=== PATIENT | male | born 1965 | race Caucasian/White ===

== ENCOUNTER 2017-04-02 09:54 | Observation (INO) | payer BC, OTHER ==
[2017-04-02] MEDS ORDERED: ASPIRIN 81 MG TABLET, CHEWABLE PO ONE (10:20)
[2017-04-02] MEDS ORDERED: ONDANSETRON HCL INJ/PF 4 MG/2 ML SDV IV ONE (10:41)
[2017-04-02] MEDS ORDERED: NORMAL SALINE 1000 ML 1,000 ML IV PRN (10:41)
--- NOTE | 2017-04-02 10:45 | ER Document Report ---
ED General - General Chief Complaint: Chest Pain Stated Complaint: HEART RATE PROBLEM Time Seen by Provider: 04/02/17 10:24 Mode of Arrival: Ambulatory Information source: Patient TRAVEL OUTSIDE OF THE [place] IN LAST 30 DAYS: No - HPI Patient complains to provider of: Palpitations, headache Onset: Yesterday Onset/Duration: Gradual, Intermittent Quality of pain: Achy Severity: Moderate Pain Level: 3 Associated symptoms: Chest pain, Nausea Exacerbated by: Denies Relieved by: Denies Similar symptoms previously: No Recently seen / treated by doctor: No Notes: Patient is a 52-year-old male who presents to the emergency room this morning complaining of palpitations, chest pain, headache, states he started with a headache yesterday evening in the posterior portion of his head, it was associated with nausea, and went away and intermittently overnight, this morning when he went to work at [employer], he started to feel the headache again and developed palpitations, felt clammy and developed some left- sided chest pain as well, he feels as though his heart is racing, and he developed lightheadedness, patient denies any history of similar symptoms previously, he does not typically get headaches, his last doctor visit was 2 years ago for checkup, he is not currently on any medications, he does not smoke , he does drink 2-4 beers daily - Related Data Allergies/Adverse Reactions: No Known Allergies Allergy (Verified 04/02/17 10:16) Home Medications: Current Home Medications No Home Medications 04/02/17 [History] Past Medical History - General Information source: Patient - Social History Smoking Status: Never Smoker Frequency of alcohol use: Social Drug Abuse: None Family History: Reviewed & Not Pertinent - Past Medical History Cardiac Medical History: Reports: Hx Hypercholesterolemia Renal/ Medical History: Denies: Hx Peritoneal Dialysis Surgical Hx: Negative - Immunizations Hx Diphtheria, Pertussis, Tetanus Vaccination: No Review of Systems - Review of Systems Constitutional: No symptoms reported EENT: No symptoms reported Cardiovascular: See HPI Respiratory: No symptoms reported Gastrointestinal: See HPI Genitourinary: No symptoms reported Male Genitourinary: No symptoms reported Musculoskeletal: No symptoms reported Skin: No symptoms reported Hematologic/Lymphatic: No symptoms reported Neurological/Psychological: See HPI -: Yes All other systems reviewed and negative Physical Exam - Vital signs Vitals: Temp Pulse Resp BP Pulse Ox 97.9 F 66 35 H 131/69 H 98 04/02/17 09:59 04/02/17 09:59 04/02/17 09:59 04/02/17 09:59 04/02/17 09:59 Interpretation: Normal - General General appearance: Appears well, Alert - HEENT Head: Normocephalic, Atraumatic Eyes: Normal Pupils: PERRL - Respiratory Respiratory status: No respiratory distress Chest status: Nontender Breath sounds: Normal Chest palpation: Normal - Cardiovascular Rhythm: Regular Heart sounds: Normal auscultation Murmur: No - Abdominal Inspection: Normal Distension: No distension Bowel sounds: Normal Tenderness: Nontender Organomegaly: No organomegaly - Back Back: Normal, Nontender - Extremities General upper extremity: Normal inspection, Nontender, Normal color, Normal ROM , Normal temperature General lower extremity: Normal inspection, Nontender, Normal color, Normal ROM , Normal temperature, Normal weight bearing. No: Ilana's sign - Neurological Neuro grossly intact: Yes Cognition: Normal Orientation: AAOx4 Love Coma Scale Eye Opening: Spontaneous Love Coma Scale Verbal: Oriented Love Coma Scale Motor: Obeys Commands [place] Coma Scale Total: 15 Speech: Normal Motor strength normal: LUE, RUE, LLE, RLE Sensory: Normal - Psychological Associated symptoms: Normal affect, Normal mood - Skin Skin Temperature: Warm Skin Moisture: Dry Skin Color: Normal Course - Re-evaluation Re-evalutation: 04/02/17 12:13 Patient resting comfortably, he does continue to have a headache, however medications have been given just within the last few minutes, chest pain is resolved except for an occasional squeezing sensation in the chest, initial workup is negative, however given patient's age, his lack of primary care or previous cardiac workup I discussed recommendation to have patient admitted for 23 hour observation for further evaluation and treatment and patient is in agreement with this, patient was discussed with Dr. Raygoza, hospitalist who agrees to admit patient for observation as well - Vital Signs Vital signs: Temp Pulse Resp BP Pulse Ox 97.9 F 66 24 H 131/69 H 97 04/02/17 09:59 04/02/17 09:59 04/02/17 10:25 04/02/17 09:59 04/02/17 10:24 - Laboratory Result Diagrams: 04/02/17 10:25 04/02/17 10:25 Laboratory results interpreted by me: 04/02/17 10:25 Creatine Kinase 256 H - Diagnostic Test Radiology reviewed: Image reviewed, Reports reviewed - EKG Interpretation by Me EKG shows normal: Sinus rhythm Rate: Normal Rhythm: NSR Discharge - Discharge Clinical Impression: Chest pain Qualifiers: Chest pain type: unspecified Qualified Code(s): R07.9 - Chest pain, unspecified Headache Qualifiers: Headache type: unspecified Headache chronicity pattern: acute headache Intractability: not intractable Qualified Code(s): R51 - Headache Condition: Stable Disposition: ADMITTED OBSERVATION Admitting Provider: Hospitalist Unit Admitted: Telemetry
--- NOTE | 2017-04-02 10:46 | RADIOLOGY REPORT (SQ) ---
EXAM DESCRIPTION: CHEST SINGLE VIEW COMPLETED DATE/TIME: 04/02/2017 10:39 am REASON FOR STUDY: bed 19 cp COMPARISON: None. NUMBER OF VIEWS: One view. TECHNIQUE: Single frontal radiographic view of the chest acquired. LIMITATIONS: None. FINDINGS: LUNGS AND PLEURA: No opacities, masses or pneumothorax. No pleural effusion. MEDIASTINUM AND HILAR STRUCTURES: No masses. Contour normal. HEART AND VASCULAR STRUCTURES: Heart normal in size. Normal vasculature. BONES: No acute findings. HARDWARE: None in the chest. OTHER: No other significant finding. IMPRESSION: NO SIGNIFICANT RADIOGRAPHIC FINDING IN THE CHEST. TECHNICAL DOCUMENTATION: JOB ID: [id number] [employer]- All Rights Reserved
[2017-04-02 10:55] LABS: ABSOLUTE EOSINOPHILS # (AUTO) 0.2 10^3/uL (0.0-0.6); ABSOLUTE LYMPHOCYTES (AUTO) 2.8 10^3/uL (0.5-4.7); ABSOLUTE MONOCYTES (AUTO) 0.8 10^3/uL (0.1-1.4); ABSOLUTE NEUT (AUTO) 3.2 10^3/uL (1.7-8.2); BASOPHILS % (AUTO) 0.6 % (0-2); EOSINOPHILS % (AUTO) 3.1 % (0-6); HEMOGLOBIN 15.8 g/dL (13.5-17.0); HGB HCT DIFFERENCE 1.4; LYMPHOCYTES % (AUTO) 39.4 % (13-45); MEAN CORPUSCULAR HEMOGLOBIN 32.4 pg (27.0-33.4); MEAN CORPUSCULAR HGB CONC 34.4 g/dL (32.0-36.0); MEAN CORPUSCULAR VOLUME 94 fl (80-97); MONOCYTES % (AUTO) 11.7 % (3-13); RED BLOOD COUNT 4.89 10^6/uL (4.35-5.55); RED CELL DISTRIBUTION WIDTH 13.3 % (11.5-14.0); SEGMENTED NEUTROPHILS % (AUTO) 45.2 % (42-78); WHITE BLOOD COUNT 7.2 10^3/uL (4.0-10.5)
[2017-04-02 11:16] LABS: ALANINE AMINOTRANSFERASE 70 U/L (21-72); ALBUMIN 4.5 g/dL (3.5-5.0); ALKALINE PHOSPHATASE 90 U/L (38-126); ANION GAP 13 (5-19); ASPARTATE AMINO TRANSFERASE 46 U/L (17-59); BILIRUBIN,DIRECT 0.3 mg/dL (0.0-0.4); BILIRUBIN,TOTAL 0.6 mg/dL (0.2-1.3); BLOOD UREA NITROGEN 19 mg/dL (7-20); CALCIUM 9.9 mg/dL (8.4-10.2); CARBON DIOXIDE 24 mmol/L (22-30); CHLORIDE 105 mmol/L (98-107); CREATINE KINASE 256 U/L (55-170); GLUCOSE 97 mg/dL (75-110); POTASSIUM 4.2 mmol/L (3.6-5.0); SODIUM 141.8 mmol/L (137-145); TOTAL PROTEIN 7.3 g/dL (6.3-8.2)
--- NOTE | 2017-04-02 11:20 | RADIOLOGY REPORT (SQ) ---
EXAM DESCRIPTION: CT HEAD WITHOUT COMPLETED DATE/TIME: 04/02/2017 10:59 am REASON FOR STUDY: injury COMPARISON: None. TECHNIQUE: Axial images acquired through the brain without intravenous contrast. Images reviewed wi th bone, brain and subdural windows. Images stored on PACS. All CT scanners at this facility use dose modulation, iterative reconstruction, and/or weight based d osing when appropriate to reduce radiation dose to as low as reasonably achievable (ALARA). [facility]: Dose Right [facility]: CareDose [facility]: Dose Right [facility]: Teradose 4D [facility]: [employer] RADIATION DOSE: Up-to-date CT equipment and radiation dose reduction techniques were employed. CTDIv ol: 64.6 mGy. DLP: 1163 mGy-cm. mGy. LIMITATIONS: Clinical information not provided. FINDINGS: VENTRICLES: Normal size and contour. CEREBRUM: No masses. No hemorrhage. No midline shift. No evidence for acute infarction. Normal gra y/white matter differentiation. No areas of low density in the white matter. CEREBELLUM: No masses. No hemorrhage. No alteration of density. No evidence for acute infarction. EXTRAAXIAL SPACES: No fluid collections. No masses. ORBITS AND GLOBE: No intra- or extraconal masses. Normal contour of globe without masses. CALVARIUM: No fracture. PARANASAL SINUSES: No fluid or mucosal thickening. SOFT TISSUES: No mass or hematoma. OTHER: No other significant finding. IMPRESSION: NORMAL BRAIN CT WITHOUT CONTRAST. COMMENT: Quality ID # [id number]: Final reports with documentation of one or more dose reduction techniques (e.g., Automated exposure control, adjustment of the mA and/or kV according to patient size, use of iterative reconstruction technique) TECHNICAL DOCUMENTATION: JOB ID: [id number]- All Rights Reserved
[2017-04-02 11:23] LABS: CREATINE KINASE MB 2.38 ng/mL (<4.55)
[2017-04-02 11:24] LABS: TROPONIN I < 0.012 ng/mL
[2017-04-02] MEDS ORDERED: KETOROLAC TROMETHAMINE INJ/PF 30 MG/1 ML SDV IV ONE (11:42)
[2017-04-02] MEDS ORDERED: ACETAMINOPHEN 325 MG TABLET PO PRN (13:16)
[2017-04-02] MEDS ORDERED: MAGNESIUM HYDROXIDE SUSP 30 ML UDCUP PO PRN (13:16)
[2017-04-02] MEDS ORDERED: ONDANSETRON HCL INJ/PF 4 MG/2 ML SDV IV PRN (13:16)
[2017-04-02] MEDS ORDERED: BUTALB/ACETAMINOPHEN/CAFFEINE 1 TAB EACH PO PRN (13:31)
[2017-04-02] MEDS ORDERED: BUTALB/ACETAMINOPHEN/CAFFEINE 1 TAB EACH PO ONE (13:31)
--- NOTE | 2017-04-02 14:39 | PDOC H&P ---
History of Present Illness Admission Date/PCP: 04/02/17 12:16 No PCP Patient complains of: Headach and Chest Discomfort History of Present Illness: CLIFTON MONTENEGRO is a 52 year old male present with complaint of headache which radiates from base of neck to right side of head. Pt states that he became dizziness at work. Pt states that he then sat down and felt his heart racing. Pt states that his symptoms improved and then returned. Pt states that at that time he became dizzy again with Nausea. Pt states that he developed left side chest cramping sensation which lasted for few secs. Pt states that he did not have any shortness of breath, Nausea, Vomiting, or radiation of pain. Past Medical History Cardiac Medical History: Reports: Hyperlipidema Social History Information Source: Patient Smoking Status: Never Smoker Family History Family History: Reviewed & Not Pertinent Parental Family History Reviewed: Yes Children Family History Reviewed: Yes Sibling(s) Family History Reviewed.: Yes Medication/Allergy Home Medications: No Home Medications 04/02/17 Allergies/Adverse Reactions: No Known Allergies Allergy (Verified 04/02/17 10:16) Review of Systems Constitutional: ABSENT: chills, fever(s), headache(s), weight gain, weight loss Eyes: ABSENT: visual disturbances Ears: ABSENT: hearing changes Cardiovascular: PRESENT: chest pain Respiratory: ABSENT: cough, hemoptysis Gastrointestinal: ABSENT: abdominal pain, constipation, diarrhea, hematemesis, hematochezia, nausea, vomiting Genitourinary: ABSENT: dysuria, hematuria Musculoskeletal: ABSENT: joint swelling Integumentary: ABSENT: rash, wounds Neurological: ABSENT: abnormal gait, abnormal speech, confusion, dizziness, focal weakness, syncope Psychiatric: PRESENT: as per HPI Endocrine: PRESENT: as per HPI Hematologic/Lymphatic: PRESENT: as per HPI Physical Exam Vital Signs: Temp Pulse Resp BP Pulse Ox 97.9 F 66 15 126/77 H 95 04/02/17 09:59 04/02/17 09:59 04/02/17 13:01 04/02/17 13:01 04/02/17 13:01 General appearance: PRESENT: no acute distress, well-developed, well-nourished Head exam: PRESENT: atraumatic, normocephalic Eye exam: PRESENT: conjunctiva pink, EOMI. ABSENT: scleral icterus Ear exam: PRESENT: normal external ear exam Mouth exam: PRESENT: moist, tongue midline Neck exam: ABSENT: carotid bruit, JVD, lymphadenopathy, thyromegaly Respiratory exam: PRESENT: clear to auscultation suki. ABSENT: rales, rhonchi, wheezes Cardiovascular exam: PRESENT: RRR, other. ABSENT: diastolic murmur, rubs, systolic murmur GI/Abdominal exam: PRESENT: normal bowel sounds, soft. ABSENT: distended, guarding, mass, organolmegaly, rebound, tenderness Rectal exam: PRESENT: deferred Extremities exam: PRESENT: full ROM. ABSENT: calf tenderness, clubbing, pedal edema Musculoskeletal exam: PRESENT: tenderness - +tenderness to the left border of sternum. Neurological exam: PRESENT: alert, awake, oriented to person, oriented to place , oriented to time, oriented to situation, CN II-XII grossly intact. ABSENT: motor sensory deficit Psychiatric exam: PRESENT: appropriate affect, normal mood. ABSENT: homicidal ideation, suicidal ideation Skin exam: PRESENT: dry, warm. ABSENT: cyanosis, rash Results Impressions: Chest X-Ray 04/02/17 10:20 IMPRESSION: NO SIGNIFICANT RADIOGRAPHIC FINDING IN THE CHEST. Head CT 04/02/17 10:41 IMPRESSION: NORMAL BRAIN CT WITHOUT CONTRAST. Assessment & Plan - Diagnosis (1) Chest pain Qualifiers: Chest pain type: unspecified Qualified Code(s): R07.9 - Chest pain, unspecified Is this a current diagnosis for this admission?: Yes Plan: Pt with normal EKG with one troponin neg. Will continue to trend troponins and repeat EKG in a.m. Pt's chest pain is reproducible. (2) Musculoskeletal chest pain Is this a current diagnosis for this admission?: Yes Plan: Will write for Tylenol for pain. (3) Headache Qualifiers: Headache type: unspecified Headache chronicity pattern: acute headache Intractability: not intractable Qualified Code(s): R51 - Headache Is this a current diagnosis for this admission?: Yes Plan: Most likely Tension Headache: Will give Fioricet (4) Obese Is this a current diagnosis for this admission?: Yes Plan: Encourage dietary changes. (5) HLD (hyperlipidemia) Qualifiers: Hyperlipidemia type: unspecified Qualified Code(s): E78.5 - Hyperlipidemia , unspecified Is this a current diagnosis for this admission?: Yes Plan: Pt gives history of HLD. Will check Lipid profile. - Time Time Spent: 30 to 50 Minutes
[2017-04-02] MEDS: ACETAMINOPHEN 325 MG TABLET PO SCH ×2 (16:24→22:40)
[2017-04-02] MEDS ORDERED: LORAZEPAM 0.5 MG TABLET PO PRN (18:38)
[2017-04-02] MEDS ORDERED: LORAZEPAM 0.5 MG TABLET PO ONE (18:38)
--- NOTE | 2017-04-02 20:25 | EKG REPORT ---
SEVERITY:- NORMAL ECG - SINUS RHYTHM : Confirmed by: Rommel Chan MD 02-Apr-2017 20:25:03
[2017-04-03 05:58] LABS: HEMATOCRIT 42.2 % (37.9-51.0); HEMOGLOBIN 14.9 g/dL (13.5-17.0); HGB HCT DIFFERENCE 2.5; MEAN CORPUSCULAR HEMOGLOBIN 33.1 pg (27.0-33.4); MEAN CORPUSCULAR HGB CONC 35.4 g/dL (32.0-36.0); MEAN CORPUSCULAR VOLUME 94 fl (80-97); RED BLOOD COUNT 4.51 10^6/uL (4.35-5.55); RED CELL DISTRIBUTION WIDTH 13.2 % (11.5-14.0); WHITE BLOOD COUNT 6.6 10^3/uL (4.0-10.5)
[2017-04-03] MEDS ORDERED: LANSOPRAZOLE 30 MG TAB.RAP.DR PO SCH (06:00)
[2017-04-03 06:13] LABS: ANION GAP 7 (5-19); BLOOD UREA NITROGEN 16 mg/dL (7-20); CALCIUM 9.2 mg/dL (8.4-10.2); CARBON DIOXIDE 25 mmol/L (22-30); CHLORIDE 109 mmol/L (98-107); CHOLESTEROL 244.55 mg/dL (0-200); Direct HDL 44 mg/dL (>40); GLUCOSE 102 mg/dL (75-110); POTASSIUM 4.5 mmol/L (3.6-5.0); SODIUM 140.5 mmol/L (137-145); TRIGLYCERIDES 200 mg/dL (<150)
[2017-04-03 06:24] LABS: DIRECT LDL 157 mg/dL (<100)
[2017-04-03] MEDS: ACETAMINOPHEN 325 MG TABLET PO SCH (06:56)
[2017-04-03 07:56] VITALS: BP 125/73
--- NOTE | 2017-04-03 08:21 | EKG REPORT ---
SEVERITY:- NORMAL ECG - SINUS RHYTHM : Confirmed by: Rommel Chan MD 03-Apr-2017 08:19:50
--- NOTE | 2017-04-03 10:32 | PDOC DISCHARGE SUMMARY ---
General - Admit/Disc Date/PCP Admission Date/Primary Care Provider: 04/02/17 13:16 Discharge Date: 04/03/17 - Discharge Diagnosis (1) Chest pain Is this a current diagnosis for this admission?: Yes Summary: Patient's [address] elevation or depression. Patient's troponins 3 were negative through hospital stay. Recommended that patient follow-up with cardiology as outpatient for an outpatient stress test. Patient was told about his elevated cholesterol and reported that patient is not able to take statins due to myalgias. Recommended red yeast rice and co-Q10. (2) Musculoskeletal chest pain Is this a current diagnosis for this admission?: Yes Summary: Supportive care. Patient was noted to have significant cervical and trapezius muscle tenderness to palpation (3) Headache Is this a current diagnosis for this admission?: Yes Summary: Suspect tension headache: Patient was given Fioricet that helped ease headache. Patient was discharged home with 5 tablets of Fioricet (4) Obese Is this a current diagnosis for this admission?: Yes Summary: Recommended dietary changes and weight loss. (5) HLD (hyperlipidemia) Is this a current diagnosis for this admission?: Yes Summary: reports the patient has an intolerance to statins due to myalgias: Recommended that patient try red yeast rice and co-Q10 along with dietary changes/weight loss. - Additional Information Resuscitation Status: Full Code Discharge Diet: Cardiac Discharge Activity: Activity As Tolerated Home Medications: Butalb/Acetaminophen/Caffeine [Fioricet (50-325-40 mg) Tablet] 1 tab PO Q6HP PRN #5 each 04/03/17 History of Present Illness History of Present Illness: CLIFTON MONTENEGRO is a 52 year old male present with complaint of headache which radiates from base of neck to right side of head. Pt states that he became dizziness at work. Pt states that he then sat down and felt his heart racing. Pt states that his symptoms improved and then returned. Pt states that at that time he became dizzy again with Nausea. Pt states that he developed left side chest cramping sensation which lasted for few secs. Pt states that he did not have any shortness of breath, Nausea, Vomiting, or radiation of pain. Hospital Course Hospital Course: Patient is a 52-year-old gentleman who presented with complaint of dizziness and headache that occurred while at work. Patient then reported that dizziness and headache reoccurred and during that time he experienced chest pressure with rapid heart rate. Patient was admitted to the hospital where he had 2 EKGs that showed normal sinus rhythm no EKG changes as well as normal troponins. Patient was given Fioricet for headache and headache did resolve. Patient was found to have abnormal cholesterol screening test however reports the patient has a statin intolerance due to myalgias. Therefore patient was recommended to lose weight and make dietary changes. Recommendation was also made to use red yeast rice and co-Q10. Patient was instructed that he will need to follow-up with cardiology for outpatient stress test. Patient was also told that if chest pain recurs to return to the emergency department. Physical Exam Vital Signs: Temp Pulse Resp BP Pulse Ox 98.3 F 59 L 20 125/73 96 04/03/17 07:38 04/03/17 07:38 04/03/17 07:38 04/03/17 07:38 04/03/17 07:38 Intake & Output 04/02/17 04/03/17 04/04/17 06:59 06:59 06:59 Intake Total 1470 Balance 1470 Weight 101 kg General appearance: PRESENT: no acute distress, well-developed, well-nourished Head exam: PRESENT: atraumatic, normocephalic Eye exam: PRESENT: conjunctiva pink, EOMI, PERRLA. ABSENT: scleral icterus Ear exam: PRESENT: normal external ear exam Mouth exam: PRESENT: moist, tongue midline Neck exam: PRESENT: tenderness - Cervical tenderness to palpation and percussion multiple trigger points palpable along the cervical muscles as well as the trapezius bilaterally Respiratory exam: PRESENT: clear to auscultation suki. ABSENT: rales, rhonchi, wheezes Cardiovascular exam: PRESENT: bradycardia, RRR. ABSENT: diastolic murmur, rubs , systolic murmur Pulses: PRESENT: normal dorsalis pedis pul Vascular exam: PRESENT: normal capillary refill GI/Abdominal exam: PRESENT: normal bowel sounds, soft. ABSENT: distended, guarding, mass, organolmegaly, rebound, tenderness Rectal exam: PRESENT: deferred Extremities exam: PRESENT: full ROM. ABSENT: calf tenderness, clubbing, pedal edema Neurological exam: PRESENT: alert, awake, oriented to person, oriented to place , oriented to time, oriented to situation, CN II-XII grossly intact. ABSENT: motor sensory deficit Psychiatric exam: PRESENT: appropriate affect, normal mood. ABSENT: homicidal ideation, suicidal ideation Skin exam: PRESENT: dry, intact, warm. ABSENT: cyanosis, rash Results Laboratory Results: 04/03/17 05:47 04/03/17 05:47 04/03/17 04/03/17 05:47 05:47 WBC 6.6 RBC 4.51 Hgb 14.9 Hct 42.2 MCV 94 MCH 33.1 MCHC 35.4 RDW 13.2 Plt Count 200 Sodium 140.5 Potassium 4.5 Chloride 109 H Carbon Dioxide 25 Anion Gap 7 BUN 16 Creatinine 0.90 Est GFR ( Amer) > 60 Est GFR (Non-Af Amer) > 60 Glucose 102 Calcium 9.2 Triglycerides 200 H Cholesterol 244.55 H LDL Cholesterol Direct 157 H VLDL Cholesterol 40.0 H HDL Cholesterol 44 04/02/17 04/02/17 04/03/17 18:00 18:00 00:20 Creatine Kinase 205 H 192 H Troponin I < 0.012 04/03/17 04/03/17 04/03/17 00:20 05:47 05:47 Creatine Kinase 180 H Troponin I < 0.012 < 0.012 Impressions: Chest X-Ray 04/02/17 10:20 IMPRESSION: NO SIGNIFICANT RADIOGRAPHIC FINDING IN THE CHEST. Head CT 04/02/17 10:41 IMPRESSION: NORMAL BRAIN CT WITHOUT CONTRAST. Qualifiers PATEINT BEING DISCHARGED WITH ANY OF THE FOLLOWING DIAGNOSIS?: No
== END 2017-04-03 11:16 | disposition home or self-care (01) ==
LOC: ER 09:54 → EH 12:16 → UNDOADMOB 12:16 → EH 13:16 → 4S 14:48
DX: R07.89 Other chest pain (principal); R51 Headache; E66.9 Obesity, unspecified; E78.5 Hyperlipidemia, unspecified
CPT/HCPCS: 93005 ×2; 99285; 96361; 96374; 96375; 36415 ×2; 82553; 82550 ×2; 84443; 85025; 85027; 80048; 80053; 84484 ×2; 83036; 80061; 71010; 70450; 93010 ×2; G0378 ×3; J3490 ×3; J1885; J2405; J7030

== ENCOUNTER → 2017-08-01 | Outpatient (CLI) | payer BC ==
--- NOTE | 2017-08-01 16:54 | RADIOLOGY REPORT (SQ) ---
EXAM DESCRIPTION: CHEST PA/LATERAL COMPLETED DATE/TIME: 08/01/2017 4:25 pm REASON FOR STUDY: COUGH COMPARISON: March 2017 EXAM PARAMETERS: NUMBER OF VIEWS: two views TECHNIQUE: Digital Frontal and Lateral radiographic views of the chest acquired. RADIATION DOSE: NA LIMITATIONS: none FINDINGS: LUNGS AND PLEURA: No opacities, masses or pneumothorax. No pleural effusion. MEDIASTINUM AND HILAR STRUCTURES: No masses or contour abnormalities. HEART AND VASCULAR STRUCTURES: Heart normal size. No evidence for failure. BONES: No acute findings. HARDWARE: None in the chest. OTHER: No other significant finding. IMPRESSION: NO SIGNIFICANT RADIOGRAPHIC FINDING IN THE CHEST. TECHNICAL DOCUMENTATION: JOB ID: [id number] [employer]- All Rights Reserved
[2017-08-01 18:09] LABS: ABSOLUTE BASOPHILS # (AUTO) 0.1 10^3/uL (0.0-0.2); ABSOLUTE EOSINOPHILS # (AUTO) 0.2 10^3/uL (0.0-0.6); ABSOLUTE LYMPHOCYTES (AUTO) 2.8 10^3/uL (0.5-4.7); ABSOLUTE MONOCYTES (AUTO) 1.1 10^3/uL (0.1-1.4); ABSOLUTE NEUT (AUTO) 5.2 10^3/uL (1.7-8.2); BASOPHILS % (AUTO) 0.8 % (0-2); EOSINOPHILS % (AUTO) 1.8 % (0-6); HEMATOCRIT 47.6 % (37.9-51.0); HEMOGLOBIN 16.4 g/dL (13.5-17.0); LYMPHOCYTES % (AUTO) 30.1 % (13-45); MEAN CORPUSCULAR HEMOGLOBIN 31.7 pg (27.0-33.4); MEAN CORPUSCULAR HGB CONC 34.5 g/dL (32.0-36.0); MEAN CORPUSCULAR VOLUME 92 fl (80-97); MONOCYTES % (AUTO) 11.6 % (3-13); PLATELET COUNT 271 10^3/uL (150-450); RED BLOOD COUNT 5.17 10^6/uL (4.35-5.55); RED CELL DISTRIBUTION WIDTH 13.9 % (11.5-14.0); SEGMENTED NEUTROPHILS % (AUTO) 55.7 % (42-78); TOTAL CELLS COUNTED % (AUTO) 100 %; WHITE BLOOD COUNT 9.3 10^3/uL (4.0-10.5)
[2017-08-01 18:44] LABS: ALANINE AMINOTRANSFERASE 74 U/L (21-72); ALBUMIN 4.7 g/dL (3.5-5.0); ALKALINE PHOSPHATASE 98 U/L (38-126); ANION GAP 14 (5-19); ASPARTATE AMINO TRANSFERASE 44 U/L (17-59); BILIRUBIN,DIRECT 0.3 mg/dL (0.0-0.4); BILIRUBIN,TOTAL 0.5 mg/dL (0.2-1.3); BLOOD UREA NITROGEN 15 mg/dL (7-20); CARBON DIOXIDE 27 mmol/L (22-30); CHLORIDE 100 mmol/L (98-107); GLUCOSE 106 mg/dL (75-110); POTASSIUM 4.3 mmol/L (3.6-5.0); SODIUM 140.5 mmol/L (137-145); TOTAL PROTEIN 7.8 g/dL (6.3-8.2)
== END ==
LOC: OD 15:37
PROVIDERS: ATTEND Family Medicine Geriatric Medicine
DX: E78.5 Hyperlipidemia, unspecified (principal); G47.33 Obstructive sleep apnea (adult) (pediatric); R03.0 Elevated blood-pressure reading, without diagnosis of hypertension; R05 Cough; Z79.899 Other long term (current) drug therapy
CPT/HCPCS: 36415; 71046; 80053; 84443; 85025

== ENCOUNTER → 2018-01-30 | Outpatient (CLI) | payer BC ==
--- NOTE | 2018-01-30 12:52 | RADIOLOGY REPORT (SQ) ---
EXAM DESCRIPTION: RIBS LEFT W/PA CHEST COMPLETED DATE/TIME: 01/30/2018 12:42 pm REASON FOR STUDY: M54.5, R07.81, LOW BACK PAIN, RIB PAIN, PLEURODYNIA M54.5 LOW BACK PAIN R07.81 P LEURODYNIA COMPARISON: None. TECHNIQUE: Frontal view of the chest and additional views of the left ribs acquired. NUMBER OF VIEWS: Five view. LIMITATIONS: None. FINDINGS: FRONTAL CXR: No pneumothorax. No pleural effusion. No atelectasis or infiltrates. RIBS: No acute displaced rib fractures. No lytic or blastic bony lesions. OTHER: No other significant finding. IMPRESSION: 1 No acute pulmonary findings. 2. NO PNEUMOTHORAX. 3. NO acute DISPLACED RIB FRACTURES. COMMENT: SITE OF TRAUMA/COMPLAINT MARKED/STAMP COMPLETED: NO. TECHNICAL DOCUMENTATION: JOB ID: [id number] [employer]- All Rights Reserved Reading location - IP/workstation name: [email or web address]
--- NOTE | 2018-01-30 12:53 | RADIOLOGY REPORT (SQ) ---
EXAM DESCRIPTION: SACRUM AND COCCYX COMPLETED DATE/TIME: 01/30/2018 12:42 pm REASON FOR STUDY: M54.5, RO7.81, LOW BACK PAIN, RIB PAIN, PLEURODYNIA M54.5 LOW BACK PAIN R07.81 P LEURODYNIA COMPARISON: None. NUMBER OF VIEWS: Three views. TECHNIQUE: AP, lateral, and tilt views of the sacrum and coccyx. LIMITATIONS: None. FINDINGS: MINERALIZATION: Normal. BONES: No acute fracture or dislocation. Degenerative changes and disc disease at L5-S1. SOFT TISSUES: No soft tissue swelling. No foreign body. OTHER: No other significant finding. IMPRESSION: NEGATIVE STUDY OF THE SACRUM AND COCCYX. TECHNICAL DOCUMENTATION: JOB ID: [id number] [employer]- All Rights Reserved Reading location - IP/workstation name: [email or web address]
--- NOTE | 2018-01-30 12:55 | RADIOLOGY REPORT (SQ) ---
EXAM DESCRIPTION: LUMBAR SPINE COMPLETE COMPLETED DATE/TIME: 01/30/2018 12:42 pm REASON FOR STUDY: M54.5, R07.81, LOW BACK PAIN, RIB PAIN, PLEURODYNIA M54.5 LOW BACK PAIN R07.81 P LEURODYNIA COMPARISON: None. NUMBER OF VIEWS: Five views including obliques. TECHNIQUE: AP, lateral, oblique, and sacral radiographic images acquired of the lumbar spine. LIMITATIONS: None. FINDINGS: MINERALIZATION: Normal. SEGMENTATION: Normal. No transitional anatomy. ALIGNMENT: Normal. VERTEBRAE: Maintained height. No fracture or worrisome bone lesion. DISCS: Moderate severe to marked disc disease at L5-S1 with vacuum phenomenon. Small to mild anteri or osteophytes. Mild to moderate disc narrowing at L4-5. POSTERIOR ELEMENTS: Mild facet arthrosis lower lumbar spine. Pedicles are intact. No pars defect o r posterior arch defects. HARDWARE: None in the spine. PARASPINAL SOFT TISSUES: Normal. PELVIS: Intact as visualized. No fractures or worrisome bone lesions. SI joints intact. OTHER: No other significant finding. IMPRESSION: 1 Degenerative disc disease at L5-S1 and to a lesser degree at L4-L 5. 2 No acute osseous findings. TECHNICAL DOCUMENTATION: JOB ID: [id number] [employer]- All Rights Reserved Reading location - IP/workstation name: [email or web address]
== END ==
LOC: OD 11:55
PROVIDERS: ATTEND Family Medicine Geriatric Medicine
DX: M54.5 Low back pain (principal); R07.81 Pleurodynia; M51.36 Other intervertebral disc degeneration, lumbar region
CPT/HCPCS: 72110; 72220

== ENCOUNTER → 2018-01-31 | Outpatient (CLI) | payer BC ==
[2018-01-31 13:41] LABS: APPEARANCE,URINE CLEAR; BILIRUBIN,URINE NEGATIVE (NEGATIVE); COLOR,URINE YELLOW; GLUCOSE, URINE NEGATIVE (NEGATIVE); KETONES,URINE NEGATIVE (NEGATIVE); LEUKOCYTE ESTERASE,URINE NEGATIVE (NEGATIVE); NITRITE,URINE NEGATIVE (NEGATIVE); PROTEIN,URINE NEGATIVE (NEGATIVE); URINE SPECIFIC GRAVITY 1.009; UROBILINOGEN,URINE NEGATIVE mg/dL (<2.0)
[2018-01-31 13:48] LABS: ABSOLUTE EOSINOPHILS # (AUTO) 0.1 10^3/uL (0.0-0.6); ABSOLUTE LYMPHOCYTES (AUTO) 1.8 10^3/uL (0.5-4.7); ABSOLUTE MONOCYTES (AUTO) 1.2 10^3/uL (0.1-1.4); ABSOLUTE NEUT (AUTO) 6.1 10^3/uL (1.7-8.2); BASOPHILS % (AUTO) 0.5 % (0-2); EOSINOPHILS % (AUTO) 1.2 % (0-6); HEMOGLOBIN 15.6 g/dL (13.5-17.0); LYMPHOCYTES % (AUTO) 19.4 % (13-45); MEAN CORPUSCULAR HEMOGLOBIN 32.5 pg (27.0-33.4); MEAN CORPUSCULAR HGB CONC 35.4 g/dL (32.0-36.0); MEAN CORPUSCULAR VOLUME 92 fl (80-97); MONOCYTES % (AUTO) 12.6 % (3-13); PLATELET COUNT 233 10^3/uL (150-450); RED BLOOD COUNT 4.81 10^6/uL (4.35-5.55); RED CELL DISTRIBUTION WIDTH 13.5 % (11.5-14.0); SEGMENTED NEUTROPHILS % (AUTO) 66.3 % (42-78); TOTAL CELLS COUNTED % (AUTO) 100 %; WHITE BLOOD COUNT 9.2 10^3/uL (4.0-10.5)
[2018-01-31 14:06] LABS: ALANINE AMINOTRANSFERASE 50 U/L (21-72); ALKALINE PHOSPHATASE 75 U/L (38-126); AMYLASE 39 U/L (30-110); ANION GAP 9 (5-19); ASPARTATE AMINO TRANSFERASE 34 U/L (17-59); BILIRUBIN,DIRECT 0.3 mg/dL (0.0-0.4); BILIRUBIN,TOTAL 0.6 mg/dL (0.2-1.3); BLOOD UREA NITROGEN 17 mg/dL (7-20); CALCIUM 9.1 mg/dL (8.4-10.2); CARBON DIOXIDE 28 mmol/L (22-30); CHLORIDE 103 mmol/L (98-107); GLUCOSE 93 mg/dL (75-110); LIPASE 68.1 U/L (23-300); POTASSIUM 4.3 mmol/L (3.6-5.0); SODIUM 139.9 mmol/L (137-145); TOTAL PROTEIN 6.9 g/dL (6.3-8.2)
== END ==
LOC: OD 12:49
PROVIDERS: ATTEND Family Medicine
DX: R10.9 Unspecified abdominal pain (principal)
CPT/HCPCS: 36415; 80053; 81001; 82150; 83690; 85025

== ENCOUNTER 2018-02-02 11:46 | Emergency (ER) | payer OTHER, BC ==
[2018-02-02] MEDS ORDERED: KETOROLAC TROMETHAMINE 60 MG/2 ML SDV IM ONE (12:48)
[2018-02-02] MEDS ORDERED: DIAZEPAM INJ 10 MG/2 ML DISP.SYRIN IM ONE (12:48)
--- NOTE | 2018-02-02 12:54 | ER Document Report ---
ED General - General Chief Complaint: Back Pain Stated Complaint: BACK PAIN Time Seen by Provider: 02/02/18 12:48 Mode of Arrival: Medic Information source: Patient TRAVEL OUTSIDE OF THE [place] IN LAST 30 DAYS: No - HPI Notes: I have greeted and performed a rapid initial assessment of this patient. A comprehensive ED assessment and evaluation of the patient, analysis of test results and completion of the medical decision making process will be conducted by additional ED providers. 53-year-old male brought to the emergency department by EMS for back pain. Patient states that 5 days ago he lifted something heavy while at work and pulled a muscle in his back. He followed up with his primary care physician and was referred to orthopedic surgery. He followed up with Dr. Allen 2 days ago. He states that he had a steroid injection into his back. He was started on Motrin. Patient states that this morning he felt a severe spasm sensation in the left side of his back. He states that he dropped to his knees. He denies any new trauma or injury. He is having some numbness and tingling down his right lower extremity. Patient states that he is not able to ambulate because of the pain. Patient denies any bowel or bladder incontinence. PHYSICAL EXAMINATION: GENERAL: Moderate distress. HEAD: Atraumatic, normocephalic. EYES: Pupils equal round extraocular movements intact, conjunctiva are normal. ENT: Nares patent NECK: Normal range of motion LUNGS: No respiratory distress Musculoskeletal: L flank tenderness to palpation. NEUROLOGICAL: Normal speech, normal gait. PSYCH: Normal mood, normal affect. SKIN: Warm, Dry, normal turgor, no rashes or lesions noted. - Related Data Allergies/Adverse Reactions: No Known Allergies Allergy (Verified 04/02/17 10:16) Past Medical History - Social History Smoking Status: Unknown if Ever Smoked Family History: Reviewed & Not Pertinent Patient has suicidal ideation: No Patient has homicidal ideation: No - Past Medical History Cardiac Medical History: Reports: Hx Hypercholesterolemia Renal/ Medical History: Denies: Hx Peritoneal Dialysis - Immunizations Hx Diphtheria, Pertussis, Tetanus Vaccination: No Physical Exam - Vital signs Vitals: Temp Pulse Resp BP Pulse Ox 98.5 F 74 26 H 142/106 H 98 02/02/18 12:02 02/02/18 12:02 02/02/18 12:02 02/02/18 12:02 02/02/18 12:02 Course - Vital Signs Vital signs: Temp Pulse Resp BP Pulse Ox 98.5 F 74 26 H 142/106 H 98 02/02/18 12:02 02/02/18 12:02 02/02/18 12:02 02/02/18 12:02 02/02/18 12:02 Discharge - Discharge Referrals: WILLIAM MAYNARD MD [Primary Care Provider] - Follow up as needed
[2018-02-02] MEDS ORDERED: DIAZEPAM INJ 10 MG/2 ML DISP.SYRIN IV ONE (13:26)
[2018-02-02] MEDS ORDERED: METHOCARBAMOL INJ/PF 1000 MG/10 ML SDV IV ONE (13:27)
[2018-02-02] MEDS ORDERED: KETOROLAC TROMETHAMINE INJ/PF 30 MG/1 ML SDV IV ONE (13:27)
[2018-02-02 15:07] LABS: APPEARANCE,URINE CLEAR; BILIRUBIN,URINE NEGATIVE (NEGATIVE); COLOR,URINE YELLOW; GLUCOSE, URINE 50 mg/dL (NEGATIVE); KETONES,URINE NEGATIVE (NEGATIVE); LEUKOCYTE ESTERASE,URINE NEGATIVE (NEGATIVE); NITRITE,URINE NEGATIVE (NEGATIVE); PROTEIN,URINE NEGATIVE (NEGATIVE); URINE SPECIFIC GRAVITY 1.011; UROBILINOGEN,URINE NEGATIVE mg/dL (<2.0)
[2018-02-02 16:00] VITALS: BP 117/81
--- NOTE | 2018-02-02 16:06 | ER Document Report ---
ED Neck/Back Problem - General Chief Complaint: Back Pain Stated Complaint: BACK PAIN Time Seen by Provider: 02/02/18 12:48 Mode of Arrival: Medic Notes: Patient is complaining of severe pain in his left back region. He worked Tuesday lifting some objects that were fairly heavy and pulled something in his back. He went to his primary care provider on Tuesday we will arrange for him to see an orthopedic back specialist Tuesday and he received 2 injections in the lower left back region. He did not note any improvement in the pain. He is also taking Duexis and a muscle relaxer. This morning, he was having severe back spasms and it was so severe they cause him to go to his knees and he was unable to walk. He has had back problems in the past, but never this bad with this severe. Says he has some mild numbness in his left leg and foot. TRAVEL OUTSIDE OF THE [place] IN LAST 30 DAYS: No - Related Data Allergies/Adverse Reactions: No Known Allergies Allergy (Verified 04/02/17 10:16) Past Medical History - General Information source: Patient - Social History Smoking Status: Unknown if Ever Smoked Family History: Reviewed & Not Pertinent Patient has suicidal ideation: No Patient has homicidal ideation: No - Past Medical History Cardiac Medical History: Reports: Hx Hypercholesterolemia Psychiatric Medical History: Reports: Hx Anxiety, Other - Panic attacks - Immunizations Hx Diphtheria, Pertussis, Tetanus Vaccination: No Review of Systems - Review of Systems Notes: REVIEW OF SYSTEMS: CONSTITUTIONAL : Denies fever. EENT: Denies eye, ear, nose or mouth or throat pain or other symptoms. CARDIOVASCULAR: Denies chest pain. RESPIRATORY: Denies cough, chest congestion, or shortness of breath. GASTROINTESTINAL: Denies abdominal pain or nausea, vomiting, or diarrhea. GENITOURINARY: Denies difficulty or painful urinating, urinary frequency, blood in urine. MUSCULOSKELETAL: See HPI. SKIN: Denies rash or skin lesions. NEUROLOGICAL: Denies LOC or altered mental status. Denies headache. Denies sensory loss or motor deficits. Has no specific dermatomal pattern of distribution of symptoms. ALL OTHER SYSTEMS REVIEWED AND NEGATIVE. Physical Exam - Vital signs Vitals: Temp Pulse Resp BP Pulse Ox 98.5 F 74 26 H 142/106 H 98 02/02/18 12:02 02/02/18 12:02 02/02/18 12:02 02/02/18 12:02 02/02/18 12:02 Interpretation: Normal - Notes Notes: PHYSICAL EXAMINATION: GENERAL: Well-appearing, laying on his left side, in apparent pain, especially to move the slightest amount. HEAD: Atraumatic, normocephalic. EYES: Pupils equal round and reactive to light, extraocular movements intact. ENT: oropharynx clear without exudates. Moist mucous membranes. NECK: Normal range of motion, supple. LUNGS: Breath sounds clear and equal bilaterally. HEART: Regular rate and rhythm without murmurs. ABDOMEN: Soft, nontender. No guarding or rebound. No masses. BACK: Tender in the left paralumbar muscle region. EXTREMITIES: Normal range of motion without pain. NEUROLOGICAL: Normal speech, unable to assess gait. Sensory, motor exams essentially grossly normal. Awake, alert, and oriented x3. PSYCH: Normal mood, normal affect. SKIN: Warm, dry, no rashes. Course - Re-evaluation Re-evalutation: 02/02/18 20:20 Patient was given 5 mg of Valium IV, 30 mg of Toradol IV, and a gram of Robaxin IV. I also was able to contact Dr. Allen, who came to the emergency department and evaluated the patient. He recommended no change in treatment plan and he will follow up with the patient early in the week to arrange an MRI. We did discuss the Robaxin and he said that it would be fine to add that to the current treatment regimen that the patient has. I provided the patient with a note for returning to work next Tuesday. Patient showed significant improvement. His pain was significantly relieved. He was able to turn onto his back and moving his legs around very well and carrying on a conversation with little indication of pain. - Vital Signs Vital signs: Temp Pulse Resp BP Pulse Ox 98.1 F 59 L 16 117/81 97 02/02/18 15:51 02/02/18 15:51 02/02/18 15:51 02/02/18 15:51 02/02/18 15:51 - Laboratory Laboratory results interpreted by me: 02/02/18 13:18 Urine Glucose (UA) 50 H Discharge - Discharge Clinical Impression: Back pain, Muscle spasm Condition: Stable Disposition: HOME, SELF-CARE Additional Instructions: LOW BACK PAIN: Three out of every four people will have an episode of disabling back pain during their lifetime. Most commonly the pain is due to straining of the muscles and ligaments in the low back. Usual treatment includes: (1) Rest on a firm surface. Avoid lying on your stomach. (2) Ice pack the painful area. After a few days, gentle heat may be used intermittently to relax the area, or ice packs can be continued. (3) Medication may be needed -- muscle relaxers and antiinflammatory medicines are commonly used. (4) As the back improves, exercises are prescribed to strengthen the back and abdominal muscles. Your doctor will advise you on the proper care for your back at each stage in your recovery. You may be better in a few days -- or healing may take several weeks. If new symptoms of a "herniated disc" (radiation of pain, numbness, or tingling down the back of the leg or weakness in the leg) occur, you should be re-examined. Further testing may be necessary. PAIN MEDICATION INJECTION: You have received an injection of a pain medication. You should experience significant pain relief within 45 minutes. If this injection was a narcotic -- it will impair your judgement, slow your reaction time and make you sleepy (as well as relieve your pain). Narcotics also can cause nausea. You should not drive, work with machinery, or perform any task requiring mental alertness until all effects of the medication are gone -- six to eight hours. Do not take any alcohol, or sedatives, and do not take any other medication without checking with your physician. MUSCLE RELAXERS: Muscle relaxing medications are usually prescribed for acute muscle spasm or injury to the neck and back. They are often combined with antiinflammatory pain medication for increased relief. You may stop the muscle relaxer when the pain and stiffness have improved. Start the medication again if spasms recur. Muscle relaxers may cause drowsiness, especially with the first dose. Do not operate machinery or drive while under the effects of the medication. Most muscle relaxers last up to 24 hours. Do not combine the medication with alcohol. Continue to take all of your other medications. Follow-up with Dr. Allen next week as scheduled to get your MRI, etc. FOLLOW-UP CARE: If you have been referred to a physician for follow-up care, call the physician s office for an appointment as you were instructed or within the next two days. If you experience worsening or a significant change in your symptoms, notify the physician immediately or return to the Emergency Department at any time for re-evaluation. Prescriptions: Methocarbamol [Robaxin 500 mg Tablet] 1,000 mg PO QID #40 tablet Forms: Return to Work Referrals: WILLIAM MAYNARD MD [Primary Care Provider] - Follow up as needed DANIELLE CRUZ DO [ACTIVE STAFF] - Follow up as needed
== END 2018-02-02 16:18 | disposition home or self-care (01) ==
LOC: ER 11:46
DX: M54.9 Dorsalgia, unspecified (principal); M62.830 Muscle spasm of back; X50.0XXA Overexertion from strenuous movement or load, initial encounter; Y99.0 Civilian activity done for income or pay; R20.0 Anesthesia of skin
CPT/HCPCS: 99283; 81001; J3360; J2800; J1885

== ENCOUNTER → 2018-02-08 | Outpatient (CLI) | payer OTHER, BC ==
--- NOTE | 2018-02-08 09:42 | RADIOLOGY REPORT (SQ) ---
EXAM DESCRIPTION: MRI LUMBAR SPINE WITHOUT COMPLETED DATE/TIME: 02/08/2018 7:50 am REASON FOR STUDY: LUMBAR RADICULOPATHY (M54.16) M54.16 RADICULOPATHY, LUMBAR REGION COMPARISON: Lumbar spine films 01/30/2018 TECHNIQUE: Sagittal and Axial imaging includes T1, T2, STIR and gradient echo sequences. Coronal T2/ HASTE imaging. LIMITATIONS: None. FINDINGS: VISUALIZED UPPER ABDOMEN: Limited evaluation. No acute or suspicious findings suggested. SEGMENTATION: No transitional anatomy. The lowest well-developed disc space is labeled L5-S1. ALIGNMENT: Anatomic. VERTEBRAE: Intact. BONE MARROW: Fatty reactive vertebral body endplate changes at L5-S1. DISC SIGNAL: Decreased T2 weighted intervertebral disc signal at L2-3, through L5-S1. POSTERIOR ELEMENTS: Generally intact. No pars defect evident. HARDWARE: None in the spine. CORD AND CONUS: Normal in size and signal intensity. Conus at the L1-2 level. SOFT TISSUES: No aortic aneurysm seen. No bulky retroperitoneal adenopathy or mass. No paraspinal mas s or fluid. T11-12: Mild facet hypertrophy. No central or foraminal stenosis. T12-L1: Mild facet hypertrophy. No central or foraminal stenosis. L1-L2: Mild facet hypertrophy. No central or foraminal stenosis. L2-L3: Mild diffuse posterior disc bulging, moderate facet and ligament hypertrophy. Borderline cent ral canal narrowing. Mild bilateral inferior foraminal narrowing without exiting L2 nerve root impin gement. L3-L4: Mild diffuse posterior disc bulging, moderate bilateral facet and ligament hypertrophy. Borde rline central canal narrowing. Mild bilateral inferior foraminal narrowing without exiting L3 nerve root impingement. L4-L5: Mild diffuse posterior disc bulging. Moderate bilateral facet and ligament hypertrophy. No c entral stenosis. Mild bilateral inferior foraminal narrowing without exit L4 nerve root impingement. L5-S1: Disc space loss of height with fatty degenerative vertebral body endplate change. Minimal pos terior disc bulge, mild bilateral facet hypertrophy. No central stenosis. Mild bilateral foraminal narrowing. SACRUM: Visualized upper sacrum intact. OTHER: No other significant findings. IMPRESSION: Mild diffuse degenerative changes as above TECHNICAL DOCUMENTATION: JOB ID: [id number]- All Rights Reserved Reading location - IP/workstation name: [email or web address]
== END ==
LOC: RAD 06:44
PROVIDERS: ATTEND Family Medicine
DX: M54.16 Radiculopathy, lumbar region (principal)
CPT/HCPCS: 72148

== ENCOUNTER → 2018-12-27 | Outpatient (CLI) | payer BC ==
--- NOTE | 2018-12-27 13:08 | RADIOLOGY REPORT (SQ) ---
EXAM DESCRIPTION: MRI LUMBAR SPINE WITHOUT COMPLETED DATE/TIME: 12/27/2018 12:47 pm REASON FOR STUDY: M51.36 OTHER INTERVERTEBRAL DISC DEGENERATION, LUMBAR REGION M51.36 OTHER INTERVE RTEBRAL DISC DEGENERATION, LUMBAR REGION COMPARISON: 2018 TECHNIQUE: Sagittal and Axial imaging includes T1, T2, STIR and gradient echo sequences. Coronal T2/ HASTE imaging. LIMITATIONS: None. FINDINGS: VISUALIZED UPPER ABDOMEN: Limited evaluation. No acute or suspicious findings suggested. SEGMENTATION: No transitional anatomy. The lowest well-developed disc space is labeled L5-S1. ALIGNMENT: Anatomic. VERTEBRAE: Intact. BONE MARROW: Normal. No marrow replacement or reactive changes. DISC SIGNAL: Preserved L1-2 disc. Other discs are diminished in height and signal. POSTERIOR ELEMENTS: No pars defect. No bulky degenerative overgrowth although there is facet arthro javi present. HARDWARE: None in the spine. CORD AND CONUS: Normal in size and signal intensity. Conus at the appropriate level. SOFT TISSUES: No aortic aneurysm seen. No bulky retroperitoneal adenopathy or mass. No paraspinal mas s or fluid. L1-L2: No significant spinal stenosis or exit foraminal stenosis. L2-L3: Broad disc bulge. Mild posterior ligament thickening and slight facet arthropathy. Overall m ild central narrowing with mild bilateral foraminal encroachment. L3-L4: Broad disc bulge and mild facet arthropathy. Minimal central narrowing. Mild -moderate bilat eral foraminal encroachment. L4-L5: Disc and facet disease without significant central canal compromise bilateral mild-moderate fo raminal narrowing. L5-S1: Disc height loss with broad disc bulge and associated spurring. Mild facet overgrowth. Moder ate bilateral foraminal stenosis. LOWER THORACIC: Incompletely imaged. No stenosis seen. SACRUM: Visualized upper sacrum intact. OTHER: No other significant findings. IMPRESSION: 1. Multilevel lumbar spondylosis but no evidence of high-grade stenosis for developing spinal malalig nment. No fracture or worrisome bone lesion. Similar appearance to prior. TECHNICAL DOCUMENTATION: JOB ID: [id number] [employer]- All Rights Reserved Reading location - IP/workstation name: [email or web address]
== END ==
LOC: RAD 12:02
PROVIDERS: ATTEND Family Medicine
DX: M51.36 Other intervertebral disc degeneration, lumbar region (principal)
CPT/HCPCS: 72148

== ENCOUNTER 2019-01-24 23:35 | Emergency (ER) | payer BC ==
[2019-01-25 00:28] VITALS: BP 137/87
== END 2019-01-25 02:59 | disposition left against medical advice (07) ==
LOC: ER 23:35
DX: Z53.21 Procedure and treatment not carried out due to patient leaving prior to being seen by health care provider (principal)

== ENCOUNTER 2019-02-11 10:44 | Emergency (ER) | payer BC ==
--- NOTE | 2019-02-11 11:47 | ER Document Report ---
ED Medical Screen (RME) - General Chief Complaint: Breathing Difficulty Stated Complaint: DIFFICULTY BREATHING Time Seen by Provider: 02/11/19 11:33 Primary Care Provider: DANIELLE CRUZ DO [Primary Care Provider] - Follow up as needed Notes: 54-year-old male with hypertension and chronic back pain recently received an epidural at [facility] surgery presents to the emergency department with 2 complaints. Patient has a persistent cough that aggravated the second complaint of low back pain. Patient was diagnosed with bronchitis and seen at an urgent care earlier this week, given albuterol inhaler and a round of low- dose steroids but has had a persistent dry cough that caused him to reinjure his back. Cough is persistent, dry. Currently patient is complaining of significant bilateral lower back pain typical of his previous pain. No urinary retention/saddle paresthesia/extremity weakness/fevers. I have greeted and performed a rapid initial assessment of this patient. A comprehensive ED assessment and evaluation of the patient, analysis of test results and completion of medical decision making process will be conducted by an additional ED providers. TRAVEL OUTSIDE OF THE [place] IN LAST 30 DAYS: No - Related Data Allergies/Adverse Reactions: No Known Allergies Allergy (Verified 02/11/19 10:45) Past Medical History - Social History Chew tobacco use (# tins/day): No Frequency of alcohol use: None Drug Abuse: None - Past Medical History Cardiac Medical History: Reports: Hx Hypercholesterolemia, Hx Hypertension Renal/ Medical History: Denies: Hx Peritoneal Dialysis Psychiatric Medical History: Reports: Hx Anxiety - Immunizations Hx Diphtheria, Pertussis, Tetanus Vaccination: No Physical Exam - Vital signs Vitals: Temp Pulse Resp BP Pulse Ox 97.7 F 68 24 H 150/113 H 95 02/11/19 10:48 02/11/19 10:48 02/11/19 10:48 02/11/19 10:48 02/11/19 10:48 - Notes Notes: PHYSICAL EXAMINATION: Reviewed vital signs and charting by RN GENERAL: Alert, interacts well. No acute distress. HEAD: Normocephalic, atraumatic. NECK: Full range of motion. Trachea midline. LUNGS: Expiratory wheezing heard in right upper lobe, rales, or rhonchi. No resp iratory distress. HEART: Regular rate and rhythm. No murmur ABDOMEN: Deferred in triage EXTREMITIES: Moves all 4 extremities spontaneously. No edema, No cyanosis. PSYCH: Normal affect, normal mood. SKIN: Warm, dry, normal turgor. No rashes or lesions noted. Course - Vital Signs Vital signs: Temp Pulse Resp BP Pulse Ox 97.7 F 68 24 H 150/113 H 95 02/11/19 10:48 02/11/19 10:48 02/11/19 10:48 02/11/19 10:48 02/11/19 10:48 Doctor's Discharge - Discharge Referrals: DANIELLE CRUZ DO [Primary Care Provider] - Follow up as needed
[2019-02-11] MEDS ORDERED: IPRATROPIUM/ALBUTEROL 0.5-2.5 MG/3 ML AMPUL NEB ONE (11:48)
[2019-02-11] MEDS ORDERED: KETOROLAC TROMETHAMINE INJ/PF 30 MG/1 ML SDV IV ONE (12:23)
[2019-02-11] MEDS ORDERED: LIDOCAINE 5% (700 MG) TRANSDERMAL ADH..PATCH TP ONE (12:24)
[2019-02-11] MEDS ORDERED: KETOROLAC TROMETHAMINE 60 MG/2 ML SDV IM ONE (12:38)
[2019-02-11 12:45] LABS: ABSOLUTE BASOPHILS # (AUTO) 0.1 10^3/uL (0.0-0.2); ABSOLUTE EOSINOPHILS # (AUTO) 0.2 10^3/uL (0.0-0.6); ABSOLUTE LYMPHOCYTES (AUTO) 3.2 10^3/uL (0.5-4.7); ABSOLUTE MONOCYTES (AUTO) 1.1 10^3/uL (0.1-1.4); ABSOLUTE NEUT (AUTO) 5.6 10^3/uL (1.7-8.2); BASOPHILS % (AUTO) 0.5 % (0-2); EOSINOPHILS % (AUTO) 2.3 % (0-6); HEMATOCRIT 46.7 % (37.9-51.0); HEMOGLOBIN 16.1 g/dL (13.5-17.0); LYMPHOCYTES % (AUTO) 31.9 % (13-45); MEAN CORPUSCULAR HEMOGLOBIN 31.6 pg (27.0-33.4); MEAN CORPUSCULAR HGB CONC 34.5 g/dL (32.0-36.0); MEAN CORPUSCULAR VOLUME 92 fl (80-97); MONOCYTES % (AUTO) 10.4 % (3-13); PLATELET COUNT 304 10^3/uL (150-450); RED CELL DISTRIBUTION WIDTH 14.1 % (11.5-14.0); SEGMENTED NEUTROPHILS % (AUTO) 54.9 % (42-78); TOTAL CELLS COUNTED % (AUTO) 100 %; WHITE BLOOD COUNT 10.2 10^3/uL (4.0-10.5)
[2019-02-11 12:48] LABS: APPEARANCE,URINE CLEAR; BILIRUBIN,URINE NEGATIVE (NEGATIVE); COLOR,URINE YELLOW; GLUCOSE, URINE NEGATIVE (NEGATIVE); KETONES,URINE TRACE mg/dL (NEGATIVE); LEUKOCYTE ESTERASE,URINE NEGATIVE (NEGATIVE); NITRITE,URINE NEGATIVE (NEGATIVE); PROTEIN,URINE NEGATIVE (NEGATIVE); URINE SPECIFIC GRAVITY 1.012; UROBILINOGEN,URINE NEGATIVE mg/dL (<2.0)
[2019-02-11 12:56] LABS: ALANINE AMINOTRANSFERASE 84 U/L (21-72); ALBUMIN 4.3 g/dL (3.5-5.0); ALKALINE PHOSPHATASE 154 U/L (38-126); ANION GAP 11 (5-19); ASPARTATE AMINO TRANSFERASE 55 U/L (17-59); BILIRUBIN,DIRECT 0.3 mg/dL (0.0-0.4); BILIRUBIN,TOTAL 1.2 mg/dL (0.2-1.3); BLOOD UREA NITROGEN 16 mg/dL (7-20); CARBON DIOXIDE 23 mmol/L (22-30); CHLORIDE 107 mmol/L (98-107); GLUCOSE 97 mg/dL (75-110); POTASSIUM 3.8 mmol/L (3.6-5.0); TOTAL PROTEIN 7.6 g/dL (6.3-8.2)
--- NOTE | 2019-02-11 13:07 | RADIOLOGY REPORT (SQ) ---
EXAM DESCRIPTION: CHEST 2 VIEWS COMPLETED DATE/TIME: 02/11/2019 12:59 pm REASON FOR STUDY: cough COMPARISON: None. EXAM PARAMETERS: NUMBER OF VIEWS: two views TECHNIQUE: Digital Frontal and Lateral radiographic views of the chest acquired. RADIATION DOSE: NA LIMITATIONS: none FINDINGS: LUNGS AND PLEURA: No opacities, masses or pneumothorax. No pleural effusion. MEDIASTINUM AND HILAR STRUCTURES: No masses or contour abnormalities. HEART AND VASCULAR STRUCTURES: Heart normal size. No evidence for failure. BONES: No acute findings. HARDWARE: None in the chest. OTHER: No other significant finding. IMPRESSION: NO ACUTE RADIOGRAPHIC FINDING IN THE CHEST. TECHNICAL DOCUMENTATION: JOB ID: [id number] [employer]- All Rights Reserved Reading location - IP/workstation name: [email or web address]
[2019-02-11] MEDS ORDERED: DEXAMETHASONE SOD PHOS INJ 10 MG/1 ML VIAL IM ONE (14:45)
[2019-02-11] MEDS ORDERED: AMOXICILLIN TR/POT CLAVULANATE 500-125 MG TAB PO ONE (14:45)
[2019-02-11 15:16] VITALS: BP 129/88
--- NOTE | 2019-02-11 16:06 | EKG REPORT ---
SEVERITY:- NORMAL ECG - SINUS RHYTHM : Confirmed by: Rommel Chan MD 11-Feb-2019 16:05:07
--- NOTE | 2019-02-11 21:47 | ER Document Report ---
Entered by BERNARD FORBES SCRIBE 02/11/19 1503 Acting as scribe for:PARESH STEPHENS DO ED General - General Chief Complaint: Breathing Difficulty Stated Complaint: DIFFICULTY BREATHING Time Seen by Provider: 02/11/19 11:33 Primary Care Provider: DANIELLE CRUZ DO [ACTIVE STAFF] - Follow up in 3-5 days Mode of Arrival: Ambulatory Information source: Patient Notes: Patient is a 54 year old male with chronic back pain presents to the emergency department complaining of a worsening cough and back pain onset this morning. Patient states he was diagnosed with bronchitis 4 days ago and given a low dose of steroids and inhalers. He states he did not finish the steroids due to having a subsequent "upset stomach". He states this morning he had a coughing fit which caused him to have a flare up of his usual back pain. He describes this pain as a sharpness that sends sensations into his groin and bilateral legs. He also complains of abdominal pain and chest pain only when he coughs which he attributes to frequently coughing. He denies any dysuria, saddle anesthesia or urinary or fecal incontinence. Patient reports being previously prescribed gabapentin, Flexeril, baclofen, Lyrica and Robaxin in the past and reports he felt these medications did not help much. He states that he recently started receiving epidural shots which he states significantly improved his pain. He reports his next epidural shot is on the 02/19/19. TRAVEL OUTSIDE OF THE [place] IN LAST 30 DAYS: No - Related Data Allergies/Adverse Reactions: No Known Allergies Allergy (Verified 02/11/19 10:45) Past Medical History - General Information source: Patient - Social History Smoking Status: Never Smoker Chew tobacco use (# tins/day): No Frequency of alcohol use: None Drug Abuse: None Family History: Reviewed & Not Pertinent Patient has suicidal ideation: No Patient has homicidal ideation: No - Past Medical History Cardiac Medical History: Reports: Hx Hypercholesterolemia, Hx Hypertension Psychiatric Medical History: Reports: Hx Anxiety - Immunizations Hx Diphtheria, Pertussis, Tetanus Vaccination: No Review of Systems - Review of Systems Constitutional: No symptoms reported EENT: No symptoms reported Cardiovascular: See HPI, Chest pain Respiratory: See HPI, Cough Gastrointestinal: See HPI, Abdominal pain Genitourinary: No symptoms reported Male Genitourinary: No symptoms reported Musculoskeletal: See HPI, Back pain Skin: No symptoms reported Hematologic/Lymphatic: No symptoms reported Neurological/Psychological: No symptoms reported -: Yes All other systems reviewed and negative Physical Exam - Vital signs Vitals: Temp Pulse Resp BP Pulse Ox 97.7 F 68 24 H 150/113 H 95 02/11/19 10:48 02/11/19 10:48 02/11/19 10:48 02/11/19 10:48 02/11/19 10:48 Interpretation: Hypertensive, Tachypneic - Notes Notes: GENERAL: Alert, interacts well. No acute distress. HEAD: Normocephalic, atraumatic. EYES: Pupils equal, round, and reactive to light. Extraocular movements intact. ENT: Oral mucosa moist, tongue midline. NECK: Full range of motion. Supple. Trachea midline. LUNGS: Focal rhonci to the right middle and lower lobes. No wheezes or rales. No respiratory distress. Dry cough HEART: Regular rate and rhythm. No murmurs, gallops, or rubs. ABDOMEN: Soft, non-tender. Non-distended. Bowel sounds present in all 4 quadrants. No guarding, rigidity, or rebound. EXTREMITIES: Moves all 4 extremities spontaneously. No edema, radial and dorsalis pedis pulses 2/4 bilaterally. 5/5 Great toe raising strength. No cyanosis. NEUROLOGICAL: Alert and oriented x3. Normal speech. Biceps and patellar DTRs 2+ bilaterally. No saddle anesthesia. Sensations intact. PSYCH: Normal affect, normal mood. SKIN: Warm, dry, normal turgor. No rashes or lesions noted. BACK: Tender to palpation to the paraspinal muscles in the lumbar region. Course - Re-evaluation Re-evalutation: 02/11/19 14:57 CBC unremarkable, CMP shows slight elevation in LFTs honestly consistent with his recent steroid use, troponin negative, urinalysis shows small blood and small ketones, only 15 RBCs, doubt kidney stone causing the flare of his back pain at this time. Chest x-ray shows no acute process however clinically his lung exam with focal coarse rhonchi in the right mid and lower lobe is very consistent with pneumonia patient will be treated with Augmentin. Encouraged to finish his steroids by mouth however he states it upsets his stomach so he will be given a dose of Decadron IM here. Patient already has multiple different muscle relaxers at home, we discussed dosing of several different muscle relaxers including Robaxin. Patient does not wish to have a new prescription for any other muscle relaxers. We also discussed that for acute flares of chronic conditions we try really hard not to use narcotic pain medications due to the increased risk of addiction. Patient is agreeable to foregoing narcotic pain medication at this time. Patient is discharged home with instructions on using humidifier, honey, hot tea and elkh-cal-tplkjoz cough drops in addition to Tessalon Perles. He does not have any red flag symptoms, no signs of cauda equina. Patient counseled on signs of cauda equina and reasons to return. 02/11/19 15:00 Pain is consistent with musculoskeletal flare from coughing. - Vital Signs Vital signs: Temp Pulse Resp BP Pulse Ox 98.6 F 68 16 129/88 H 97 02/11/19 15:00 02/11/19 10:48 02/11/19 15:01 02/11/19 15:00 02/11/19 15:01 - Laboratory Result Diagrams: 02/11/19 12:20 02/11/19 12:20 Laboratory results interpreted by me: 02/11/19 02/11/19 02/11/19 12:20 12:20 12:20 RDW 14.1 H ALT 84 H Alkaline Phosphatase 154 H Urine Ketones TRACE H Urine Blood SMALL H Discharge - Discharge Clinical Impression: Low back pain Qualifiers: Chronicity: acute Back pain laterality: bilateral Sciatica presence: with sciat ica Sciatica laterality: bilateral sciatica Qualified Code(s): M54.42 - Lumbago with sciatica, left side; M54.41 - Lumbago with sciatica, right side Right middle lobe pneumonia Qualifiers: Pneumonia type: due to unspecified organism Qualified Code(s): J18.1 - Lobar pneumonia, unspecified organism Condition: Stable Disposition: HOME, SELF-CARE Additional Instructions: Pneumonia Your examination indicates that you have pneumonia. This is an infection of the lung tissue, usually caused by bacteria or a virus. Symptoms include cough, fever, shaking chills, chest pain, shortness of breath, and coughing up bloody sputum. Treatment for bacterial pneumonia includes rest, antibiotics for 10 to 14 days, increasing your clear liquid intake, a cool mist humidifier at your bedside, and fever medication. Often, a repeat chest X-ray is performed in a few weeks--even if you feel better--to ascertain whether the infection has completely resolved and no underlying lung problem is present. You should call the physician if you develop persistent vomiting, high fever that does not respond to fever medication, increasing shortness of breath, confusion, or lethargy. Also, failure to improve within two to three days is an indication for re-examination. Drink plenty of fluids, take Tessalon Perles as directed to decrease your cough, you may also use honey to decrease your cough, use a humidifier at night. You may use your muscle relaxers that you already have at home as prescribed. Please do not use more than one at a time. Low Back Pain Three out of every four people will have an episode of disabling back pain during their lifetime. Most commonly the pain is due to straining of the muscles and ligaments in the low back. Usual treatment includes: (1) Rest on a firm surface. Avoid lying on your stomach. (2) Ice pack the painful area. After a few days, gentle heat may be used intermittently to relax the area, or ice packs can be continued. (3) Medication may be needed -- muscle relaxers and antiinflammatory medicines are commonly used. (4) As the back improves, exercises are prescribed to strengthen the back and abdominal muscles. Your doctor will advise you on the proper care for your back at each stage in your recovery. You may be better in a few days -- or healing may take several weeks. If new symptoms of a "herniated disc" (radiation of pain, numbness, or tingling down the back of the leg or weakness in the leg) occur, you should be re-examined. Further testing may be necessary. Prescriptions: Benzonatate [Tessalon Perles 100 mg Capsule] 100 mg PO Q8HP PRN #40 capsule PRN Reason: Amox Tr/Potassium Clavulanate [Augmentin 875-125 Tablet] 1 tab PO BID 10 Days tablet Forms: Parent Work Note, Return to Work Referrals: DANIELLE CRUZ DO [ACTIVE STAFF] - Follow up in 3-5 days I personally performed the services described in the documentation, reviewed and edited the documentation which was dictated to the scribe in my presence, and it accurately records my words and actions.
== END 2019-02-11 15:15 | disposition home or self-care (01) ==
LOC: ER 10:44
DX: M54.42 Lumbago with sciatica, left side (principal); M54.41 Lumbago with sciatica, right side; J18.1 Lobar pneumonia, unspecified organism; G89.29 Other chronic pain; M54.9 Dorsalgia, unspecified; E78.00 Pure hypercholesterolemia, unspecified; I10 Essential (primary) hypertension
CPT/HCPCS: 93005; 94640; 99285; 96372; 36415; 85025; 80053; 81001; 84484; 71046; 93010; J1885; J1100; J7620

== ENCOUNTER → 2019-03-08 | Outpatient (CLI) | payer BC ==
--- NOTE | 2019-03-08 16:41 | RADIOLOGY REPORT (SQ) ---
EXAM DESCRIPTION: CHEST PA/LATERAL COMPLETED DATE/TIME: 03/08/2019 4:27 pm REASON FOR STUDY: COUGH;LEFT RIB PAIN COMPARISON: 02/11/2019. EXAM PARAMETERS: NUMBER OF VIEWS: two views TECHNIQUE: Digital Frontal and Lateral radiographic views of the chest acquired. RADIATION DOSE: NA LIMITATIONS: none FINDINGS: LUNGS AND PLEURA: No opacities, masses or pneumothorax. No pleural effusion. MEDIASTINUM AND HILAR STRUCTURES: No masses or contour abnormalities. HEART AND VASCULAR STRUCTURES: Heart normal size. No evidence for failure. BONES: No acute findings. HARDWARE: None in the chest. OTHER: No other significant finding. IMPRESSION: NO SIGNIFICANT RADIOGRAPHIC FINDING IN THE CHEST. TECHNICAL DOCUMENTATION: JOB ID: [id number] [employer]- All Rights Reserved Reading location - IP/workstation name: [email or web address]
--- NOTE | 2019-03-08 16:42 | RADIOLOGY REPORT (SQ) ---
EXAM DESCRIPTION: RIBS LEFT W/O PA CHEST COMPLETED DATE/TIME: 03/08/2019 4:27 pm REASON FOR STUDY: COUGH;LEFT RIB PAIN R05 COUGH R07.81 PLEURODYNIA COMPARISON: None. NUMBER OF VIEWS: Four views. TECHNIQUE: Images acquired of the left ribs in the area of focal concern. LIMITATIONS: None. FINDINGS: RIBS: No acute displaced fracture. No worrisome bone lesions. LUNGS: Limited exam. No obvious pneumothorax. No pleural effusion. OTHER: No other significant finding. IMPRESSION: NO ACUTE DISPLACED RIB FRACTURE. COMMENT: SITE OF TRAUMA/COMPLAINT MARKED/STAMP COMPLETED: YES. TECHNICAL DOCUMENTATION: JOB ID: [id number] [employer]- All Rights Reserved Reading location - IP/workstation name: [email or web address]
== END ==
LOC: OD 15:58
PROVIDERS: ATTEND Family Medicine Geriatric Medicine
DX: R05 Cough (principal); R07.81 Pleurodynia
CPT/HCPCS: 71046

== ENCOUNTER → 2019-07-04 | Outpatient (CLI) | payer BC ==
--- NOTE | 2019-07-05 15:04 | Pulmonary Function Test ---
Pulmonary Function Test Date of Procedure:: 07/04/19 INDICATION:: Dyspnea Referring Provider: [employer] Enforcement [employer] Agent: Sandy Edouard CHANGE NUMBER OPERATOR - Report Spirometry: Spirometry: pre-FVC: 4.29 L 100% pre-FEV:1 3.31 L 95% pre-FEV1/FVC %: 77 predicted: 81 [id number]%: 2.88 L 80% Lung Volume: Total lung capacity: 5.53 L 88% Vital capacity: 4.29 L 100% Inspiratory capacity: 3.59 L FRC N2: 1.94 L 63% ERV: 0.31 L RV: 1.24 L 59% RV/TLC %:: 22 predicted 35 Diffusion Capactity: DLCO: 32.1 118% DLCO/VA: 5.77 140% Impression: Minimal obstructive ventilatory defect may be inferred by the decrease in flow in the FEF 25-75%. No restrictive ventilatory defect. No hyperinflation and no air trapping. Normal diffusion capacity
== END ==
LOC: RT 07:01
PROVIDERS: ATTEND Family Medicine Geriatric Medicine
DX: R05 Cough (principal); R06.2 Wheezing
CPT/HCPCS: 94010; 94727; 94729

== ENCOUNTER → 2019-08-27 | Outpatient (CLI) | payer BC ==
[2019-08-27 09:01] LABS: ANION GAP 6 (5-19); BLOOD UREA NITROGEN 16 mg/dL (7-20); CALCIUM 8.9 mg/dL (8.4-10.2); CARBON DIOXIDE 30 mmol/L (22-30); CHLORIDE 101 mmol/L (98-107); CREATINE KINASE 219 U/L (55-170); GLUCOSE 104 mg/dL (75-110); POTASSIUM 4.3 mmol/L (3.6-5.0)
== END ==
LOC: OD 07:05
PROVIDERS: ATTEND Family Medicine Geriatric Medicine
DX: M79.10 Myalgia, unspecified site (principal); K21.9 Gastro-esophageal reflux disease without esophagitis; Z79.899 Other long term (current) drug therapy
CPT/HCPCS: 36415; 80048; 82550; 83735; 84443

== ENCOUNTER 2019-10-01 17:47 | Emergency (ER) | payer BC ==
--- NOTE | 2019-10-01 18:05 | ER Document Report ---
ED Medical Screen (RME) - General Chief Complaint: Chest Pain Stated Complaint: CHEST PAIN Time Seen by Provider: 10/01/19 18:04 Primary Care Provider: ANDREW MAYNARD MD [Primary Care Provider] - Follow up as needed Mode of Arrival: Wheelchair Information source: Patient Notes: 54-year-old male presented to ED for chest pain that started yesterday. He states he intermittently has pain that radiates down the left arm. He also has arthritis and back issues so he does not know if the pain down his arm is from the back issues and the arthritis of her face from the chest pain. He also has a history of mild COPD. Patient is alert oriented respirations regular nonlabored at this time. He is not diaphoretic since his chest pain started. He does have a history of high blood pressure and high cholesterol. States he was recently started on Advair less than a month ago. He states he rinses his mouth out every time he uses it. He also has a history of anxiety. If he has a feeling like there is something in his throat since starting on Advair. He states sometimes the feeling in his throat starts him to feel like he is having a pain in his chest when he takes a deep breath. I have greeted and performed a rapid initial assessment of this patient. A comprehensive ED assessment and evaluation of the patient, analysis of test results and completion of medical decision making process will be conducted by an additional ED providers. I have greeted and performed a rapid initial assessment of this patient. A comprehensive ED assessment and evaluation of the patient, analysis of test results and completion of medical decision making process will be conducted by an additional ED providers. TRAVEL OUTSIDE OF THE [place] IN LAST 30 DAYS: No - Related Data Allergies/Adverse Reactions: No Known Allergies Allergy (Verified 10/01/19 18:04) Past Medical History - Past Medical History Cardiac Medical History: Reports: Hx Hypercholesterolemia, Hx Hypertension Renal/ Medical History: Denies: Hx Peritoneal Dialysis Psychiatric Medical History: Reports: Hx Anxiety - Immunizations Hx Diphtheria, Pertussis, Tetanus Vaccination: No Physical Exam - Vital signs Vitals: Temp Pulse Resp BP Pulse Ox 97.6 F 69 16 134/79 H 96 10/01/19 18:01 10/01/19 18:01 10/01/19 18:01 10/01/19 18:01 03/09/20 18:01 Course - Vital Signs Vital signs: Temp Pulse Resp BP Pulse Ox 97.6 F 69 16 134/79 H 96 10/01/19 18:01 10/01/19 18:01 10/01/19 18:01 10/01/19 18:01 10/01/19 18:01 Doctor's Discharge - Discharge Referrals: ANDREW MAYNARD MD [Primary Care Provider] - Follow up as needed
[2019-10-01] MEDS ORDERED: ASPIRIN 81 MG TABLET, CHEWABLE PO ONE (18:13)
--- NOTE | 2019-10-01 18:45 | RADIOLOGY REPORT (SQ) ---
EXAM DESCRIPTION: CHEST 2 VIEWS COMPLETED DATE/TIME: 10/01/2019 6:20 pm REASON FOR STUDY: Chest pain shortness of breath COMPARISON: 03/08/2019 EXAM PARAMETERS: NUMBER OF VIEWS: two views TECHNIQUE: Digital Frontal and Lateral radiographic views of the chest acquired. RADIATION DOSE: NA LIMITATIONS: none FINDINGS: LUNGS AND PLEURA: No opacities, masses or pneumothorax. No pleural effusion. MEDIASTINUM AND HILAR STRUCTURES: No masses or contour abnormalities. HEART AND VASCULAR STRUCTURES: Heart normal size. No evidence for failure. BONES: No acute findings. HARDWARE: None in the chest. OTHER: No other significant finding. IMPRESSION: NO ACUTE RADIOGRAPHIC FINDING IN THE CHEST. TECHNICAL DOCUMENTATION: JOB ID: [id number] [employer]- All Rights Reserved Reading location - IP/workstation name: [email or web address]
[2019-10-01 19:13] LABS: ABSOLUTE BASOPHILS # (AUTO) 0.1 10^3/uL (0.0-0.2); ABSOLUTE EOSINOPHILS # (AUTO) 0.3 10^3/uL (0.0-0.6); ABSOLUTE LYMPHOCYTES (AUTO) 2.5 10^3/uL (0.5-4.7); ABSOLUTE MONOCYTES (AUTO) 0.8 10^3/uL (0.1-1.4); ABSOLUTE NEUT (AUTO) 4.3 10^3/uL (1.7-8.2); BASOPHILS % (AUTO) 0.7 % (0-2); EOSINOPHILS % (AUTO) 3.8 % (0-6); HEMOGLOBIN 16.6 g/dL (13.5-17.0); LYMPHOCYTES % (AUTO) 31.3 % (13-45); MEAN CORPUSCULAR HEMOGLOBIN 31.8 pg (27.0-33.4); MEAN CORPUSCULAR HGB CONC 34.5 g/dL (32.0-36.0); MEAN CORPUSCULAR VOLUME 92 fl (80-97); MONOCYTES % (AUTO) 10.6 % (3-13); PLATELET COUNT 276 10^3/uL (150-450); RED BLOOD COUNT 5.22 10^6/uL (4.35-5.55); RED CELL DISTRIBUTION WIDTH 14.2 % (11.5-14.0); SEGMENTED NEUTROPHILS % (AUTO) 53.6 % (42-78); TOTAL CELLS COUNTED % (AUTO) 100 %
[2019-10-01 19:31] LABS: ALBUMIN 4.3 g/dL (3.5-5.0); ALKALINE PHOSPHATASE 90 U/L (38-126); ANION GAP 8 (5-19); ASPARTATE AMINO TRANSFERASE 31 U/L (17-59); BILIRUBIN,TOTAL 0.5 mg/dL (0.2-1.3); BLOOD UREA NITROGEN 15 mg/dL (7-20); CALCIUM 9.3 mg/dL (8.4-10.2); CARBON DIOXIDE 30 mmol/L (22-30); CHLORIDE 101 mmol/L (98-107); GLUCOSE 99 mg/dL (75-110); POTASSIUM 4.4 mmol/L (3.6-5.0); TOTAL PROTEIN 7.4 g/dL (6.3-8.2)
--- NOTE | 2019-10-01 20:49 | ER Document Report ---
Entered by LYUDMILA MEZA SCRIBE 10/01/192002 Acting as scribe for:DEDE PETERSON DO ED General - General Chief Complaint: Chest Pain Stated Complaint: CHEST PAIN Time Seen by Provider: 10/01/19 18:04 Primary Care Provider: ANDREW MAYNARD MD [Primary Care Provider] - Follow up as needed Mode of Arrival: Wheelchair Information source: Patient Notes: This 54 year old male patient with a history of HTN, HLD, obstructive sleep apnea on CPAP, and PNA presents to the ED today accompanied by his with complaints of substernal chest pain with radiation down his left arm that began yesterday. Patient states that the pain is exacerbated by deep breaths. Patient notes that he noticed the pain after he got home from work yesterday and thought it was indigestion, so he took some Tums without relief. Patient states that the pain has been relatively constant since onset, but the intensity varies at times. Patient also reports "sharp jabs" on his right side that last approximately x20-30 seconds. Patient reports a history of low back pain due to sciatica that radiates down his RLE. states that patient is scheduled for an epidural on 10/10/19 for his back pain. notes that the patient sees Dr. Carrera for cardiology and that his last stress test was in 2017. TRAVEL OUTSIDE OF THE [place] IN LAST 30 DAYS: No - Related Data Allergies/Adverse Reactions: No Known Allergies Allergy (Verified 10/01/19 18:04) Past Medical History - General Information source: Patient - Social History Smoking Status: Never Smoker Cigarette use (# per day): No Chew tobacco use (# tins/day): No Smoking Education Provided: No Drug Abuse: None Lives with: Spouse/Significant other Family History: Reviewed & Not Pertinent Patient has suicidal ideation: No Patient has homicidal ideation: No - Past Medical History Cardiac Medical History: Reports: Hx Hypercholesterolemia, Hx Hypertension Psychiatric Medical History: Reports: Hx Anxiety - Immunizations Hx Diphtheria, Pertussis, Tetanus Vaccination: No Review of Systems - Review of Systems Constitutional: No symptoms reported EENT: No symptoms reported Cardiovascular: See HPI, Chest pain Respiratory: No symptoms reported Gastrointestinal: No symptoms reported Genitourinary: No symptoms reported Male Genitourinary: No symptoms reported Musculoskeletal: See HPI, Back pain, Other - LUE and RLE pain Skin: No symptoms reported Hematologic/Lymphatic: No symptoms reported Neurological/Psychological: No symptoms reported -: Yes All other systems reviewed and negative Physical Exam - Vital signs Vitals: Temp Pulse Resp BP Pulse Ox 97.6 F 69 16 134/79 H 96 10/01/19 18:01 10/01/19 18:01 10/01/19 18:01 10/01/19 18:01 10/01/19 18:01 - General General appearance: Alert In distress: None - HEENT Head: Normocephalic, Atraumatic Eyes: Normal Pupils: PERRL - Respiratory Respiratory status: No respiratory distress Chest status: Nontender Breath sounds: Normal Chest palpation: Normal - Cardiovascular Rhythm: Regular Heart sounds: Normal auscultation Murmur: No - Abdominal Inspection: Obese Distension: No distension Bowel sounds: Normal Tenderness: Nontender - Abdomen soft Organomegaly: No organomegaly - Back Back: Normal, Nontender - Extremities General upper extremity: Normal inspection General lower extremity: Normal inspection - Neurological Neuro grossly intact: Yes Sensory: Normal - Psychological Associated symptoms: Normal affect, Normal mood - Skin Skin Temperature: Warm Skin Moisture: Dry Skin Color: Normal Course - Re-evaluation Re-evalutation: 10/01/19 23:59 MDM 54 year old with htn and relatively constant chest pain for a day. EKG and cardiac markers here are reassuring. Additionally stress about 2 years was normal per . Feel he can safely follow up but will rec baby aspirin till follow up and add carafate to his medicines. - Vital Signs Vital signs: Temp Pulse Resp BP Pulse Ox 98.1 F 69 15 149/97 H 95 10/02/19 00:01 10/01/19 18:01 10/02/19 00:01 10/02/19 00:01 10/02/19 00:01 - Laboratory Result Diagrams: 10/01/19 18:45 10/01/19 18:45 Laboratory results interpreted by me: 10/01/19 10/01/19 18:45 18:45 RDW 14.2 H Magnesium 2.4 H - EKG Interpretation by Me EKG shows normal: Sinus rhythm - NSR NL [place] [address] elevation or depression my interrpetation. Discharge - Discharge Clinical Impression: Chest pain Qualifiers: Chest pain type: unspecified Qualified Code(s): R07.9 - Chest pain, unspecified Condition: Good Disposition: HOME, SELF-CARE Instructions: Aspirin (Cardiac) ([facility]), Chest Pain of Unclear Cause ([facility]), Reflux Disease (GERD) ([facility]) Additional Instructions: See your doctor in follow up. Call later today. Take your medicine as directed. Please return here for any problems or any concerns. Take 2 baby aspirin daily. Prescriptions: Sucralfate [Carafate Susp 1 Gm/10 Ml Udcup] 1 gm PO TID 10 Days #1 bottle Referrals: ANDREW MAYNARD MD [Primary Care Provider] - Follow up as needed I personally performed the services described in the documentation, reviewed and edited the documentation which was dictated to the scribe in my presence, and it accurately records my words and actions.
[2019-10-01] MEDS ORDERED: LIDOCAINE 2% VISCOUS SOLN 15 ML UDCUP PO ONE (22:32)
[2019-10-01] MEDS ORDERED: MAG HYDROX/AL HYDROX/SIMETH SUSP 30 ML UDCUP PO ONE (22:32)
[2019-10-01] MEDS ORDERED: METOCLOPRAMIDE HCL ORAL SOLN 10 MG/10 ML UDCUP PO ONE (22:32)
[2019-10-02 00:13] VITALS: BP 149/97
--- NOTE | 2019-10-02 12:07 | EKG REPORT ---
SEVERITY:- NORMAL ECG - SINUS RHYTHM : Confirmed by: Gurvinder Carrera 02-Oct-2019 12:04:24
== END 2019-10-02 00:20 | disposition home or self-care (01) ==
LOC: ER 17:47
DX: R07.9 Chest pain, unspecified (principal); I10 Essential (primary) hypertension; E78.00 Pure hypercholesterolemia, unspecified; F41.9 Anxiety disorder, unspecified; E66.9 Obesity, unspecified
CPT/HCPCS: 93005; 99285; 36415; 83735; 85025; 80053; 84484; 71046; 93010; J3490

== ENCOUNTER → 2020-01-28 | Outpatient (CLI) | payer BC ==
[2020-01-28 08:47] LABS: ABSOLUTE LYMPHOCYTES (AUTO) 2.4 10^3/uL (0.5-4.7); ABSOLUTE MONOCYTES (AUTO) 1.4 10^3/uL (0.1-1.4); ABSOLUTE NEUT (AUTO) 8.8 10^3/uL (1.7-8.2); BASOPHILS % (AUTO) 0.1 % (0-2); EOSINOPHILS % (AUTO) 0.1 % (0-6); HEMATOCRIT 47.8 % (37.9-51.0); HEMOGLOBIN 16.3 g/dL (13.5-17.0); LYMPHOCYTES % (AUTO) 19.3 % (13-45); MEAN CORPUSCULAR HEMOGLOBIN 31.8 pg (27.0-33.4); MEAN CORPUSCULAR HGB CONC 34.2 g/dL (32.0-36.0); MEAN CORPUSCULAR VOLUME 93 fl (80-97); MONOCYTES % (AUTO) 11.1 % (3-13); PLATELET COUNT 290 10^3/uL (150-450); RED BLOOD COUNT 5.15 10^6/uL (4.35-5.55); RED CELL DISTRIBUTION WIDTH 13.4 % (11.5-14.0); SEGMENTED NEUTROPHILS % (AUTO) 69.4 % (42-78); TOTAL CELLS COUNTED % (AUTO) 100 %; WHITE BLOOD COUNT 12.6 10^3/uL (4.0-10.5)
[2020-01-28 09:29] LABS: ALBUMIN 4.1 g/dL (3.5-5.0); ALKALINE PHOSPHATASE 102 U/L (38-126); ANION GAP 6 (5-19); ASPARTATE AMINO TRANSFERASE 33 U/L (17-59); BILIRUBIN,TOTAL 0.7 mg/dL (0.2-1.3); BLOOD UREA NITROGEN 25 mg/dL (7-20); CALCIUM 9.3 mg/dL (8.4-10.2); CARBON DIOXIDE 25 mmol/L (22-30); CHLORIDE 104 mmol/L (98-107); CHOLESTEROL 263.04 mg/dL (0-200); CREATINE KINASE 189 U/L (55-170); GLUCOSE 133 mg/dL (75-110); POTASSIUM 4.8 mmol/L (3.6-5.0); TOTAL PROTEIN 7.2 g/dL (6.3-8.2); TRIGLYCERIDES 141 mg/dL (<150)
[2020-01-28 09:40] LABS: DIRECT LDL 180 mg/dL (<100)
== END ==
LOC: OD 07:15
PROVIDERS: ATTEND Family Medicine Geriatric Medicine
DX: R74.8 Abnormal levels of other serum enzymes (principal); M25.50 Pain in unspecified joint; E66.9 Obesity, unspecified; E78.5 Hyperlipidemia, unspecified; Z79.899 Other long term (current) drug therapy
CPT/HCPCS: 36415; 80053; 80061; 82550; 82553; 84443; 85025; 86038

== ENCOUNTER → 2020-02-08 | Outpatient (CLI) | payer BC | LOC: OD 07:37 | PROVIDERS: ATTEND Family Medicine Geriatric Medicine | DX: R73.9 Hyperglycemia, unspecified (principal) | CPT/HCPCS: 36415; 82947; 82950; 83036 ==

== ENCOUNTER 2020-05-03 18:25 | Emergency (ER) | payer BC ==
--- NOTE | 2020-05-03 18:39 | ER Document Report ---
ED Medical Screen (RME) - General Stated Complaint: CHEST PAIN Time Seen by Provider: 05/03/20 18:34 Primary Care Provider: ANDREW MAYNARD MD [Primary Care Provider] - Follow up as needed Notes: HPI: 55-year-old male presenting for evaluation of sharp needlelike chest pain anterior chest with radiation of the left shoulder down the left arm that began around 230 today with diaphoresis and shortness of breath. Intensity level of the discomfort varies but always some underlying discomfort. Had something similar 3 years ago was seen by cardiology states he had an echo and stress test at that time that were both normal. indicates patient did stop taking his BuSpar 2 days ago. PHYSICAL EXAMINATION: Patient mildly diaphoretic, no reproducible pain on palpation over the chest wall. EKG normal sinus rhythm without ectopy. I have greeted and performed a rapid initial assessment of this patient. A comprehensive ED assessment and evaluation of the patient, analysis of test results and completion of medical decision making process will be conducted by an additional ED providers. TRAVEL OUTSIDE OF THE [place] IN LAST 30 DAYS: No - Related Data Allergies/Adverse Reactions: gabapentin Allergy (Verified 05/03/20 18:34) Past Medical History - Past Medical History Cardiac Medical History: Reports: Hx Hypercholesterolemia, Hx Hypertension Renal/ Medical History: Denies: Hx Peritoneal Dialysis Psychiatric Medical History: Reports: Hx Anxiety - Immunizations Hx Diphtheria, Pertussis, Tetanus Vaccination: No Physical Exam - Vital signs Vitals: Temp Pulse Resp BP Pulse Ox 98.3 F 88 18 150/78 H 98 05/03/20 18:32 05/03/20 18:32 05/03/20 18:32 05/03/20 18:32 05/03/20 18:32 Course - Vital Signs Vital signs: Temp Pulse Resp BP Pulse Ox 98.3 F 88 18 150/78 H 98 05/03/20 18:32 05/03/20 18:32 05/03/20 18:32 05/03/20 18:32 05/03/20 18:32 Doctor's Discharge - Discharge Referrals: ANDREW MAYNARD MD [Primary Care Provider] - Follow up as needed
--- NOTE | 2020-05-03 18:58 | RADIOLOGY REPORT (SQ) ---
EXAM DESCRIPTION: CHEST SINGLE VIEW IMAGES COMPLETED DATE/TIME: 05/03/2020 6:49 pm REASON FOR STUDY: chest pain COMPARISON: 10/01/2019 TECHNIQUE: Single frontal radiographic view of the chest acquired. NUMBER OF VIEWS: One view. LIMITATIONS: None. FINDINGS: LUNGS AND PLEURA: No pneumothorax. No consolidation or pleural effusion. MEDIASTINUM AND HILAR STRUCTURES: Stable. HEART AND VASCULAR STRUCTURES: Stable. BONES: No acute findings. HARDWARE: None in the chest. OTHER: No other significant finding. IMPRESSION: NO ACUTE FINDINGS. TECHNICAL DOCUMENTATION: JOB ID: [id number] 2010 [employer]- All Rights Reserved Reading location - IP/workstation name: [employer]
[2020-05-03 19:13] LABS: ABSOLUTE BASOPHILS # (AUTO) 0.1 10^3/uL (0.0-0.2); ABSOLUTE EOSINOPHILS # (AUTO) 0.3 10^3/uL (0.0-0.6); ABSOLUTE LYMPHOCYTES (AUTO) 3.4 10^3/uL (0.5-4.7); ABSOLUTE MONOCYTES (AUTO) 1.1 10^3/uL (0.1-1.4); BASOPHILS % (AUTO) 0.8 % (0-2); EOSINOPHILS % (AUTO) 3.4 % (0-6); HEMATOCRIT 44.9 % (37.9-51.0); HEMOGLOBIN 15.6 g/dL (13.5-17.0); LYMPHOCYTES % (AUTO) 34.5 % (13-45); MEAN CORPUSCULAR HEMOGLOBIN 31.7 pg (27.0-33.4); MEAN CORPUSCULAR HGB CONC 34.7 g/dL (32.0-36.0); MEAN CORPUSCULAR VOLUME 92 fl (80-97); MONOCYTES % (AUTO) 11.2 % (3-13); PLATELET COUNT 264 10^3/uL (150-450); RED BLOOD COUNT 4.91 10^6/uL (4.35-5.55); RED CELL DISTRIBUTION WIDTH 13.7 % (11.5-14.0); SEGMENTED NEUTROPHILS % (AUTO) 50.1 % (42-78); TOTAL CELLS COUNTED % (AUTO) 100 %; WHITE BLOOD COUNT 9.9 10^3/uL (4.0-10.5)
[2020-05-03 19:26] LABS: PROTHROMBIN TIME 12.4 SEC (11.4-15.4)
[2020-05-03 19:33] LABS: ALBUMIN 4.1 g/dL (3.5-5.0); ALKALINE PHOSPHATASE 112 U/L (38-126); ANION GAP 7 (5-19); ASPARTATE AMINO TRANSFERASE 34 U/L (17-59); BILIRUBIN,DIRECT 0.3 mg/dL (0.0-0.4); BILIRUBIN,TOTAL 0.7 mg/dL (0.2-1.3); BLOOD UREA NITROGEN 22 mg/dL (7-20); CALCIUM 9.1 mg/dL (8.4-10.2); CARBON DIOXIDE 30 mmol/L (22-30); CHLORIDE 101 mmol/L (98-107); GLUCOSE 127 mg/dL (75-110); TOTAL PROTEIN 6.9 g/dL (6.3-8.2)
--- NOTE | 2020-05-03 20:33 | ER Document Report ---
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 The patient states he came off of his BuSpar 2 days ago because he feels like it is exacerbating some of his other symptoms he has chronically. He states today he started having some left anterior chest pain several hours prior to arrival. States he went home and laid down tried to rest. He states the pain persisted waxing and waning sharp in the left chest him and his were concerned and decided to bring him for evaluation. He states he has had "panic attacks" before. He states he feared this was the same but wanted to double check since it was chest pain. The adds he is been under a lot of stress lately. He has been trying to figure out through several specialist why he has these peripheral neuropathies. He had said in 2017 he had some episodes of chest pain had an echocardiogram and a stress test that were both normal. He sees his doctor, Dr. Flowers regularly and has been thoroughly worked up. Denies any shortness of breath. No other pain, complaints or concerns at this time. TRAVEL OUTSIDE OF THE [place] IN LAST 30 DAYS: No - Related Data Allergies/Adverse Reactions: gabapentin Allergy (Verified 05/03/20 20:09) Rvrxefj-Ytu-Xlk Reductase Inhibitor Adverse Reaction (Verified 05/03/20 20:12) Past Medical History - Social History Smoking Status: Never Smoker Family History: Reviewed & Not Pertinent - Past Medical History Cardiac Medical History: Reports: Hx Hypercholesterolemia, Hx Hypertension Renal/ Medical History: Denies: Hx Peritoneal Dialysis GI Medical History: Reports: Hx Gastroesophageal Reflux Disease Psychiatric Medical History: Reports: Hx Anxiety - Immunizations Hx Diphtheria, Pertussis, Tetanus Vaccination: No Review of Systems - Review of Systems Constitutional: denies: Fever EENT: denies: Nose congestion Cardiovascular: denies: Syncope Respiratory: denies: Stridor Gastrointestinal: denies: Vomiting Genitourinary: denies: Frequency Male Genitourinary: denies: Testicular pain Musculoskeletal: denies: Joint swelling Skin: denies: Dryness Hematologic/Lymphatic: denies: Easy bleeding Neurological/Psychological: denies: Homicidal ideation Physical Exam - Vital signs Vitals: Temp Pulse Resp BP Pulse Ox 98.3 F 88 18 150/78 H 98 05/03/20 18:32 05/03/20 18:32 05/03/20 18:32 05/03/20 18:32 05/03/20 18:32 - General General appearance: Appears well, Alert In distress: None - Respiratory Respiratory status: No respiratory distress Chest status: Nontender Breath sounds: Normal Chest palpation: Normal Notes: Patient reports pain on exam with deep inspiration - Cardiovascular Rhythm: Regular Heart sounds: Normal auscultation - Extremities General upper extremity: Normal inspection, Nontender, Normal color, Normal ROM, Normal temperature General lower extremity: Normal inspection, Nontender, Normal color, Normal ROM, Normal temperature, Normal weight bearing. No: Ilana's sign - Neurological Neuro grossly intact: Yes Cognition: Normal Orientation: AAOx4 - Psychological Associated symptoms: Normal affect, Normal mood - Skin Skin Temperature: Warm Skin Moisture: Dry Skin Color: Normal Course - Re-evaluation Re-evalutation: 05/03/20 21:30 Initial EK bpm, sinus rhythm. Normal axis. Normal intervals. No STEMI. Interpreted by me and in conjunction with ED attending. 2-hour EK bpm, sinus rhythm. Normal axis. Normal intervals. No STEMI. No acute ST T wave changes to suggest any ischemia. Unchanged from prior. Interpreted by me in conjunction with ED attending. 05/03/20 23:07 2- troponins. Heart score 1. Low risk. Patient with a previous normal echo and stress test. Suspect anxiety related with a combination of his chronic neuropathic pains in the left shoulder arm. Patient and his agree. Discussed with him the importance of outpatient follow-up and advised they return here any ER immediately with any new, persistent or worsening symptoms. They verbalized understood and agreed. - Vital Signs Vital signs: Temp Pulse Resp BP Pulse Ox 98.3 F 88 21 H 144/90 H 92 05/03/20 18:32 05/03/20 18:32 05/03/20 23:01 05/03/20 23:01 05/03/20 23:01 - Laboratory Result Diagrams: 05/03/20 19:02 05/03/20 19:02 Laboratory results interpreted by me: 05/03/20 19:02 BUN 22 H Glucose 127 H Discharge - Discharge Clinical Impression: Chest pain Qualifiers: Chest pain type: unspecified Qualified Code(s): R07.9 - Chest pain, unspecified Condition: Stable Disposition: HOME, SELF-CARE Instructions: Chest Pain of Unclear Cause ([facility]) Additional Instructions: Follow-up with your regular doctor in 2 to 3 days for reevaluation. Return here or any ER immediately with any new, persistent or worsening symptoms. Referrals: ANDREW FLOWERS MD [Primary Care Provider] - Follow up as needed
--- NOTE | 2020-05-03 22:06 | EKG REPORT ---
SEVERITY:- NORMAL ECG - SINUS RHYTHM : Confirmed by: Nydia Loya MD 03-May-2020 22:06:29
--- NOTE | 2020-05-03 22:07 | EKG REPORT ---
SEVERITY:- NORMAL ECG - SINUS RHYTHM : Confirmed by: Nydia Loya MD 03-May-2020 22:06:43
[2020-05-03 23:51] VITALS: BP 158/101
== END 2020-05-03 23:50 | disposition home or self-care (01) ==
LOC: ER 18:25
DX: R07.9 Chest pain, unspecified (principal); F41.9 Anxiety disorder, unspecified; E78.00 Pure hypercholesterolemia, unspecified; I10 Essential (primary) hypertension
CPT/HCPCS: 36415; 71045; 80053; 84484; 85025; 85610; 93005; 93010; 99285

== ENCOUNTER → 2020-08-06 | Outpatient (CLI) | payer BC ==
--- NOTE | 2020-08-06 12:50 | RADIOLOGY REPORT (SQ) ---
EXAM DESCRIPTION: MRI CERVICAL SPINE WITHOUT IMAGES COMPLETED DATE/TIME: 08/06/2020 8:42 am REASON FOR STUDY: RADICULOPATHY, CERVICAL REGION M54.12 RADICULOPATHY, CERVICAL REGION COMPARISON: None. TECHNIQUE: Sagittal and Axial imaging includes T1, T2, STIR and gradient echo sequences. LIMITATIONS: None. FINDINGS: ALIGNMENT: Normal. VERTEBRAE: Intact. BONE MARROW: Normal. No marrow replacement or reactive changes. DISCS: Normal. No significant abnormal signal or loss of height. HARDWARE: None in the spine. CORD AND BASE OF BRAIN: Normal in size and signal intensity. SOFT TISSUES: No soft tissue masses. C1-C2: No significant spinal stenosis. C2-C3: There is a right paracentral disc/ osteophyte complex that slightly flattens the cord on the r ight. No foraminal stenosis. C3-C4: No significant spinal stenosis or exit foraminal stenosis. C4-C5: No significant spinal stenosis or exit foraminal stenosis. C5-C6: There is a broad-based disc/ osteophyte complex that slightly flattens the cord. Mild foramin al stenoses. C6-C7: There appear to be uncovertebral osteophytes that result in bilateral foraminal stenoses. C7-T1: No significant spinal stenosis or exit foraminal stenosis. UPPER THORACIC: Incompletely imaged. No significant spinal stenosis or exit foraminal stenosis. OTHER: No other significant finding. IMPRESSION: There are disc/osteophyte complexes at C2-3 and at C5-6. The more significant findings are at C5-6 as described. There are uncovertebral osteophytes at C6-7 that result in some degree of foraminal stenosis on each side. TECHNICAL DOCUMENTATION: JOB ID: [id number] 2010 [employer]- All Rights Reserved Reading location - IP/workstation name: [email or web address]
== END ==
LOC: RAD 08:28
PROVIDERS: ATTEND Pediatrics
DX: M54.12 Radiculopathy, cervical region (principal)
CPT/HCPCS: 72141